=== PATIENT | male | born 1935 | race Caucasian/White ===

== ENCOUNTER → 2017-08-24 12:59 | Outpatient (CLI) | payer MEDICARE, OTHER, SELFPAY ==
--- NOTE | 2017-08-24 13:03 | RAD_ITS ---
STUDY: SWALLOWING STUDY REASON FOR EXAM: Male, 82 years old. Dysphagia. TECHNIQUE: The examination was performed with Speech Pathology in attendance. Under fluoroscopic observation, the patient ingested thin barium, thick barium, barium pudding, and barium coated cracker. FLUOROSCOPY TIME: 1:39 minutes/seconds. 1300 fluoroscopic images were obtained. RADIOLOGIST INVOLVEMENT: Radiologist was present and providing direct supervision. COMPARISON: None. FINDINGS: The following was observed during swallowing of the various mixtures of barium: Thin Barium: There was no evidence of aspiration or laryngeal penetration. Barium Pudding: There was no evidence of aspiration or laryngeal penetration. Barium Coated Cracker: There was no evidence of aspiration or laryngeal penetration. RAD/Swallowing Function w/Video IMPRESSION: Normal tailored barium swallow study. No evidence of increased risk for aspiration. The swallow study findings were discussed with the patient by the speech pathologist at the conclusion of the examination. Please see speech pathology report for more information and recommendations. Electronically Signed: Norberto Perdomo MD at 13:48 EST Tel [phone], Service support ,
--- NOTE | 2017-08-24 13:30 | SP.MBSS_ITS ---
PRIMARY / SECONDARY DIAGNOSIS: dysphagia (R13.10) REFERRING PHYSICIAN: Dr. Alondra Santiago MD CURRENT DIET: regular textures, thin liquids DENTITION: lower plate MENTAL STATUS: WNL RESPIRATORY STATUS: O2 at 3L/min via nasal cannula PREVIOUS MODIFIED BARIUM SWALLOW STUDY: none REASON FOR REFERRAL: Patient is an 82 year old male referred for a modified barium swallow (MBS) study to objectively assess the Patients oropharyngeal swallow function under fluoroscopy following multiple bouts of pneumonia (x5) across a 1 year period. Patient is currently receiving chemo for non-Hodgkin's lymphoma. Patient reports occasional feeling of bolus stasis below the laryngeal notch, further reports occasional reflux with re-presentation of bolus to the oral cavity during intake of solid textures. MEDICAL HISTORY: Non-Hodgkins lymphoma currently receiving chemotherapy, chronic obstructive pulmonary disease, congestive heart failure, reported essential tremor, neuropathy, pulmonary hypertension, hyperlipidemia, atrial fibrillation, prior stent in the RCA STUDY FINDINGS: Patient participated in a Modified Barium Swallow (MBS) study on 08/24/2017. Dr. Perdomo was the radiologist present for this evaluation. This study was recorded in the lateral view and images were sent to PACs for storage. The following consistencies were presented to this patient for analysis of oropharyngeal swallow function: thin liquids, pudding, and a regular textured, Blanca Doone cookie. Results of the MBS are as follows: PENETRATION / ASPIRATION SCALE (JIMENEZ): 1 = does not enter airway 2 = enters airway/above vocal folds/ejected 3 = enters airway/above vocal folds/not ejected 4 = enters airway/contacts vocal folds/ejected 5 = enters airway/contacts vocal folds/not ejected 6 = enters airway/below vocal folds/ejected 7 = enters airway/below vocal folds/not ejected despite effort 8 = enters airway/below vocal folds/no effort PENETRATION / ASPIRATION SCALE (SCORE): Thin liquid - 5 mL tsp.: 1 Thin liquids via cup (single sip): 1 Thin liquids via cup (single sip): 1 Thin liquids via cup (single sip): 1 Thin liquids via cup (sequential swallows): 1 Thin liquids via straw (sequential swallows): 1 Pudding via spoon: 1 Regular textured cookie: 1 Thin liquids via straw (sequential swallows): 1 IMPRESSION: DIAGNOSIS: mild pharyngeal dysphagia (R13.12) ORAL PHASE CHARACTERIZED BY: LABIAL SEAL: no labial escape TONGUE CONTROL DURING BOLUS MANIPULATION: cohesive bolus between tongue to palatal seal BOLUS PREPARATION / MASTICATION: timely and efficient chewing and mashing BOLUS TRANSPORT / LINGUAL MOTION: brisk tongue motion ORAL RESIDUE: intermittent trace residue lining oral structures PHARYNGEAL PHASE CHARACTERIZED BY: INITIATION OF PHARYNGEAL SWALLOW: bolus head at posterior laryngeal surface of epiglottis at first hyoid excursion during large volume thin liquid trials; bolus head in valleculae at first hyoid excursion across remaining trials SOFT PALATE ELEVATION: no bolus between soft palate and pharyngeal wall LARYNGEAL ELEVATION: intermittent partial superior movement of thyroid cartilage/partial approximation of arytenoids cartilage to epiglottic petiole ANTERIOR HYOID EXCURSION: partial anterior movement EPIGLOTTIC MOVEMENT: complete epiglottic inversion LARYNGEAL VESTIBULE CLOSURE AT HEIGHT OF SWALLOW: intermittent incomplete laryngeal vestibule closure with narrow column of air/contrast in laryngeal vestibule PHARYNGEAL STRIPPING WAVE: pharyngeal stripping wave present / complete PHARYNGOESOPHAGEAL SEGMENT OPENING: complete distension and complete duration with no obstruction of flow TONGUE BASE RETRACTION: no contrast between tongue base and posterior pharyngeal wall PHARYNGEAL RESIDUE: intermittent trace residue within or on pharyngeal structures ESOPHAGEAL PHASE CHARACTERIZED BY: ESOPHAGEAL BOLUS CLEARANCE IN THE UPRIGHT POSITION: complete clearance; esophageal coating EFFECTS OF TREATMENT STRATEGIES ATTEMPTED: Reduced bolus size = effective DIET TEXTURE RECOMMENDATIONS: Will recommend a regular textured, thin liquid diet. COMPENSATORY STRATEGIES RECOMMENDED: Reduced bolus volume, seated upright at 90 degrees during PO intake, remain upright for 30-60 minutes post meal (GERD precaution) INTERPRETATION OF RESULTS: Patient presents with mild pharyngeal dysphagia (R13.12) likely associated with a combination of chronic obstructive pulmonary disease and presbyphagia. Pharyngeal phase primarily marked by delayed pharyngeal swallow onset timing resulting in suboptimal bolus location upon swallow onset; and reduced closure of the airway during deglutition attributed to inconsistent hyolaryngeal excursion resulting in inconsistent laryngeal vestibule closure / pressure; all increasing the Patients risk of aspiration, though non aspiration and / or penetration noted throughout trials. Pharyngeal phase presentation not significantly outside expected values in comparison to age matched peers, though the Patient is at higher risk of pulmonary complications secondary to aspiration associated with the diagnosis of chronic obstructive pulmonary disease, would further consider the Patient at higher risk of aspiration / reduction in swallow function during recurrent chemotherapy intervention sessions. All deficits ameliorated with bolus volume adjustments. No aspiration appreciated throughout trials, unable to definitively rule out silent aspiration. RECOMMENDATIONS: Would consider further referral for esophageal workup due to the symptoms described above by the Patient. Patient able to comprehend and express recommended intake precautions detailed above with sufficient detail to suggest high likelihood of compliance. Provided brief overview of signs and symptoms of aspiration, with recommendations for the Patient to further discuss symptoms with PCP. No further skilled speech-language services warranted at this time targeting dysphagia. ADDITIONAL COMMENTS/RECOMMENDATIONS: Results and recommendations were discussed with the Patient immediately following MBS completion, with the Patient verbalizing understanding and agreement with all recommendations and education provided. IMAGE COUNT: 1300 G-CODES: SWALLOWING [id number] Current Status: CI SWALLOWING G8997 Goal Status: CI SWALLOWING G8998 Discharge Status: CI
== END ==
PROVIDERS: Family Provider Family Medicine; PCP Family Medicine
DX: R13.10 Dysphagia, unspecified (principal)
CPT/HCPCS: 74230; 92611; G8996; G8997; G8998

== ENCOUNTER 2018-03-22 06:16 | Day surgery (SDC) | payer MEDICARE, OTHER, SELFPAY ==
--- NOTE | 2018-03-22 | GASB_PTH ---
PATIENT: BARRY LOVE LOC: EN U#:[id number] AGE/SX: 83/M ROOM: RE03/22/[address]: Dr. Brenda Berg MD : 1935 BED: DIS: 03/22/2018 SPEC #: [id number] RECD: 03/22/18 14:19 STATUS: KANU RE #: [id number] HAI: 03/22/18 00:[address]: Brenda Berg DEPT: SURGICAL PATHOLOGY RECD BY: Dinesh Callejas ENTERED: 03/22/18 14:20 SP TYPE: Gastric Bx OTHR DR: Dr. Jethro Dennis DO Tissues: A - Gastric mucous membrane B - Esophageal mucous membrane C - Esophageal mucous membrane Procedures: Special Stain Group I Surgery Specimen Level IV GMS Stain (control) HEADER OPERATION: EGD ([facility] [place] PRE-OP DIAGNOSIS: Esophageal pain, dysphagia TISSUE SUBMITTED: A ? Biopsy antrum of stomach, B ? Biopsy lower esophagus, C ? Biopsy mid esophagus MICROSCOPIC DIAGNOSIS A. Antrum of stomach, biopsy: Mild gastritis. B. Lower esophagus, biopsy: Fragments of squamous epithelium with acute and chronic inflammation. Focal superficial bacterial colonization. Special stain for fungi is positive for organisms (yeast and pseudohyphae) consistent with alejandra species; matched control is appropriate. C. Mid esophagus, biopsy: Fragments of squamous epithelium with ulceration and associated marked acute inflammation. Extensive superficial bacterial colonization. Special stain for fungi is positive for numerous organisms (yeast and pseudohyphae) consistent with alejandra species; matched control is appropriate. SJ:arnav 03/25/18 COMMENT A. The results of immunohistochemistry for Helicobacter pylori will be reported separately ([id number]). MICROSCOPIC DESCRIPTION Slides are reviewed. A. The specimen shows fragments of gastric mucosa with chronic inflammatory cell infiltrates in the lamina propria consisting of lymphocytes and plasma cells, consistent with mild chronic gastritis. GROSS DESCRIPTION A - Received in fixative is one container labeled with the patient's name and designated biopsy antrum of stomach. The specimen consists of two irregular fragments of light lucero soft tissue that in aggregate measure 0.8 x 0.2 x 0.1 cm. The specimen is totally submitted in one cassette. B - Received in fixative is one container labeled with the patient's name and designated biopsy of lower esophagus. The specimen consists of multiple irregular fragments of light lucero soft tissue that in aggregate measure 1 x 0.3 x 0.1 cm. The specimen is totally submitted in one cassette. C - Received in fixative is one container labeled with the patient's name and designated biopsy of mid esophagus. The specimen consists of multiple irregular fragments of light lucero soft tissue that in aggregate measure 1.5 x 0.5 x 0.1 cm. The specimen is totally submitted in one cassette. / SJ:rg 03/22/18 TC: 2 CPT: 72811 x3, 91826 x2
--- NOTE | 2018-03-22 | IMM_PTH ---
PATIENT: BARRY LOVE LOC: EN U#:[id number] AGE/SX: 83/M ROOM: RE03/22/[address]: Dr. Brenda Berg MD : 1935 BED: DIS: 03/22/2018 SPEC #: [id number] RECD: 03/25/18 10:07 STATUS: KANU REQ #: [id number] HAI: 03/22/18 00:[address]: Brenda Berg DEPT: IMMUNOHISTOCHEMISTRY RECD BY: Agustina Ramírez ENTERED: 03/25/18 10:08 SP TYPE: IMMUNO OTHR DR: Dr. Jethro Dennis, Tissues: A - Stomach, NOS Procedures: H Pylori (initial) PHYSICIAN & INSTITUTION [place] [id number] SPECIMEN INFORMATION: Tissue Source: A ? Biopsy of antrum of stomach Clinical Info: Esophageal pain, dysphagia Specimen Number: [id number] CPT code: 54516 METHODOLOGY: Deparaffinized sections of prefer/formalin-fixed tissue or PAP/DQ stained slides are incubated with monoclonal/polyclonal antibodies/oligonucleotide probes. Localization is made via biotin free immunoperoxidase method. Appropriate controls are performed and reacted as expected. Results on target cell population are indicated in the following table: RESULTS: ANTIBODY / CLONE RESULT Block A H Pylori (polyclonal) negative These tests were developed and their performance characteristics determined by [facility]. They may not have been cleared or approved by the U.S. Food and Drug Administration. The FDA has determined that such clearance or approval is not necessary. INTERPRETATION: A. Antrum, biopsy: Negative for Helicobacter pylori organisms. SJ:arnav 03/25/18
[2018-03-22 06:47] VITALS: BP 114/50; PULSE 63; RESP 22; TEMP 36.4; O2SAT 100; BMI 39.1
--- NOTE | 2018-03-22 07:57 | PCM.IMDPSTOP ---
Immediate Post-Op Note Date of Procedure: 03/22/18 Primary Surgeon/Physician: Brenda Berg shovel loader operator: NOT,DEFINED Pre-Operative Diagnosis: dysphagia, esophageal pain Post-Operative Diagnosis: esophagitis, hiatal hernia, pathology pending Surgery/Procedure Performed:: esophagogastroduodenoscopy with mucosal biopsies Description of Surgical Findings:: moderate sized hiatal hernia noted with sliding component, esophagitis of mid to lower - biopsies taken Estimated Blood Loss: minimal Specimen's removed: mucosal biopsies of antrum of stomach, mucosal biopsies of lower and mid esophagus Type of Anesthesia:: MAC ASA Class: ASA3 Severe Disease
--- NOTE | 2018-03-22 07:58 | PCM.OPRPT ---
Report of Operation Date of Procedure: 03/22/18 Pre-Operative Diagnosis: dysphagia, esophageal pain Post-Operative Diagnosis: esophagitis, hiatal hernia, pathology pending Surgery/Procedure Performed:: esophagogastroduodenoscopy with mucosal biopsies Description of Surgical Findings:: moderate sized hiatal hernia noted with sliding component, esophagitis of mid to lower - biopsies taken landing worker: NOT,DEFINED Type of Anesthesia:: MAC Anesthesiologist: Law Tinoco Specimen's removed: mucosal biopsies of antrum of stomach, mucosal biopsies of lower and mid esophagus Estimated Blood Loss (mL): minimal Fluids Replaced: see anesthesia note Description of Procedure: After informed consent was given, the patient was brought to the endoscopy suite. Appropriate time out protocol was followed. Appropriate cardiac, blood pressure, and pulse oximetry monitoring was placed. After stable vital signs were noted, the patient was given intravenous conscious sedation. The posterior pharynx was sprayed with lidocaine spray times two and a bite block was placed. The patient was then placed in the left lateral decubitis position. The upper endoscope was lubricated and inserted into the patients mouth and then carefully placed into the patients throat. The patient was asked to swallow and the endoscope was then easily advanced into the patients esophagus. The endoscope was further advanced down into the patients stomach, then past the pylorus, then past the duodenal bulb and then to the second portion of the duodenum. There were no lesions noted in the duodenum. The endoscope was then retracted back into the stomach. There was spotty amounts of flecks of blood in the stomach. No ulcers were noted. Mucsoal biopsies with cold grasper forceps were taken of the antrum of the stomach. A retroflex view of the stomach revealed no evidence of any masses. Patient was noted to have a moderate sized hiatal hernia. No ulcers, no strictures, no masses were noted. The endoscope was retracted into the esophagus. Patient was noted to have a sliding hiatal hernia component. The mid to lower esophagus appeared with erythematous mucosa - no ulcers or masses were noted. Mucosal biopsies wre taken with cold grasper forceps. The remainder of the upper esophagus was normal. The upper endoscope was removed intact. Patient tolerated procedure well. - Complications none noted
[2018-03-22 08:00] VITALS: BP 104/49; BP 114/50; PULSE 74; RESP 18; TEMP 36.6; O2SAT 100
[2018-03-22 08:05] VITALS: BP 114/50; BP 118/56; PULSE 75; RESP 18; O2SAT 100
[2018-03-22 08:10] VITALS: BP 114/50; BP 125/56; PULSE 77; RESP 18; O2SAT 100
[2018-03-22 08:15] VITALS: BP 114/50; BP 121/73; RESP 18; TEMP 36.4; O2SAT 100
[2018-03-22 08:29] VITALS: BP 114/50
--- NOTE | 2018-03-31 15:39 | PCM.HP.BLA ---
History and Physical Date of Admission: 03/22/18 Hector Loyola 1935 ? ? REFERRING PHYSICIAN: Raoul Altamirano MD ? CHIEF COMPLAINT: New Patient and Dysphagia ? HPI: The patient is a 82 year old male presents with dysphagia. 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 Recurrence of disease - treated with rituximab 2016 - no response. 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 Had add'l chemotherapy completed 2016 with partial response. Had rituximab maintenance (end October 2017) with progression of disease XRT to mediastinum in December 2017 Last had EGD Feb 2015 - gastritis, no esophagitis noted ? Complaint of dysphagia since radiation treatments. States that he can only swallow small bites. Seems to be stuck in the pharyngeal area, but now has some getting stuck in mid sternum, feels like food gets stuck and then comes back up and then he swallows it down. He denies coughing up blood, denies hematemesis. Also complains of pain when food going down - burning. Has had multiple bouts of pneumonia in the past 2 years. Has noted persistent rash - pruritic and painful for the past 9 weeks - evaluated by [facility] and [facility] ? Barium swallow study at [facility] Aug 2017 - normal swallowing function of esophagus, however, slight pharyngeal ? ? PAST MEDICAL HISTORY Arrhythmia ? Arthritis ? ? severe - both knees Atrial fibrillation (HCC) ? 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 follicular center cell lymphoma Cataract ? COPD (chronic obstructive pulmonary disease) (HCC) ? ? home oxygen at night Coronary artery disease 12 years ago ? s/p stent HTN (hypertension) ? Hypercholesterolemia ? Kidney stones ? Pancreatitis 1979' ? ETOH related Peripheral neuropathic pain ? ? 2016, lower legs Rectal bleeding 09/16/2014 Sleep apnea ? Snoring ? ? PAST SURGICAL HISTORY COLONOSCOP W/ OR W/O BRSH SPEC ? 09/16/2014 ? Repeat 2018 HEART CATHETERIZATION ? 2002 ? stent placement HEART SURGERY HX ? ? KIDNEY SURGERY HX ? ? PAST SURGICAL HISTORY OF ? approx. 2009 ? Left and right knee replacements PAST SURGICAL HISTORY OF ? 1998 ? Cardiac Stent Duet to RCA PAST SURGICAL HISTORY OF ? ? ? kidney stones blasted ? ? Current Outpatient Prescriptions: predniSONE (DELTASONE) 20 mg tablet Take 3 pills daily x 1 week, 2 pills daily x 1 week, then 1 pill daily x 1 week doxycycline monohydrate 100 mg tablet Take 100 mg by mouth twice daily. niacin (NIACIN) 500 mg tablet Take 500 mg by mouth twice daily. furosemide (LASIX) 40 mg tablet Take 1 tablet by mouth once daily. triamcinolone acetonide (KENALOG) 0.1 % cream twice daily. hydrOXYzine HCl (ATARAX) 25 mg tablet Take 25 mg by mouth every 6 hours as needed for Itching/Rash. HYDROcodone-acetaminophen (NORCO) 5-325 mg per tablet Take 1 tablet by mouth every 6 hours as needed. doxazosin (CARDURA) 8 mg tablet Take 8 mg by mouth daily at bedtime. Pseudoephedrine-guaiFENesin (MUCINEX D MAXIMUM STRENGTH) 120-1,200 mg Tb12 Take 1 tablet by mouth every 12 hours as needed. atorvastatin (LIPITOR) 20 mg tablet Take 1 tablet by mouth once daily. losartan (COZAAR) 50 mg tablet Take 50 mg by mouth once daily. sotalol (BETAPACE) 80 mg tablet Take 1 tablet by mouth twice daily. tiotropium bromide (SPIRIVA RESPIMAT) 1.25 mcg/actuation mist Inhale 2 Puffs as instructed once daily. ipratropium-albuterol (DUONEB) 0.5 mg-3 mg(2.5 mg base)/3 mL nebu Inhale 3 mL as instructed every 4 hours as needed. apixaban (ELIQUIS) 5 mg tab tab(s) Take 1 tablet by mouth twice daily. propranolol ER (INDERAL LA) 160 mg Cs24 Take 160 mg by mouth once daily. OXYGEN, HOME THERAPY, Inhale 3 L/min as instructed continuous. budesonide-formoterol (SYMBICORT) 160-4.5 mcg/actuation inhaler Inhale 2 Puffs as instructed twice daily. albuterol HFA (PROVENTIL HFA) 90 mcg/actuation inhaler Inhale 2 Puffs as instructed as needed. hydrocortisone valerate (WESTCORT) 0.2 % cream Apply to affected area as needed. triamcinolone (KENALOG) 0.025 % ointment Apply 1 application to affected area twice daily as needed. cyanocobalamin (VITAMIN B-12) 1,000 mcg tab Take 1,000 mcg by mouth once daily. Pyridoxine HCl (VITAMIN B-6) 250 mg tablet Take 250 mg by mouth once daily. ? ? ALLERGIES: Iodine [Contrast Dye] ? 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 Social History Main Topics Smoking status: Former Smoker Packs/day: 1.50 Years: 20.00 Types: Cigarettes Start date: 03/14/1949 Quit date: 08/16/1983 Smokeless tobacco: Former User Types: Chew Quit date: 02/03/2010 Comment: Father smoked in childhood home. Alcohol use: No Comment: Quit heavy use in 1983 Drug use: No ? FAMILY HISTORY Asthma Sister ? Cancer Brother ? ? Throat in his late 50s None Sister ? None Brother ? None Sister ? None Sister ? ? ? REVIEW OF SYSTEMS Constitutional: Denies episodes of night sweats., has had weight loss due to can't eat, increased tiredness because can't eat - lack of energy? Neuro: Denies GUILLEN, vertigo and imbalance. No symptoms of neuropathy. ? HEENT: No recent change in voice, vision or hearing. ? Resp: No shortness of breath at rest. ? CVS: Denies exertional chest pain, PND, orthopnea and LE edema. ? GI: has difficulty swallowing, see HPI. ? : has kidney stones, No dysuria or gross hematuria. . ? Endo: No hot flashes. ? Musculoskeletal: Chronic b/l knee pain. ? Derm: has skin rash. ? Heme: easy bruising, denies spontaneous/prolonged bleeding. ? Psych: frustated with medical problems, seemingly depressed that nothing is improving ? PHYSICAL EXAMINATION: General: The patient is 82 year old male, well nourished, well hydrated in no acute distress. The patient is oriented to time, place, and person. VITALS: Blood pressure 102/68, pulse 72, height 170.2 cm (5' 7), weight 113.4 kg (250 lb). Body mass index is 39.16 kg/m?. Head Normocephalic. EOM intact with sclera clear and no icterus noted. Mouth with mucus membranes moist. Neck - supple with no jugular venous distention noted. Trachea is midline. No carotid bruits noted.. Lungs clear to auscultation. Normal breath sounds No rales/rhonchi/wheezing noted. No labored breathing noted, such as retractions. Heart normal S1 and S2 auscultated. No rubs/clicks/murmurs noted. Regular rate. Abdomen soft and benign. Normal bowel sounds. Difficult to determine if any masses or organomegaly due to body habitus. Extremities no calf tenderness noted. Skin macular-papular erythematous rash. Neurological non focal. Psych calm and appropriate ? IMPRESSION: dysphagia, esophageal pain ? PLAN: I have discussed the above with the patient. I have offered evaluation with EGD, possible biopsies I have explained the procedure to the patient. I have counseled the patient as to the risks of the procedure, including but not limited to: infection, bleeding, injury to any blood vessels/nerves, injury to any intraabdominal organs such as liver/spleen, perforation of the GI tract, aspiration, complications of anesthesia, etc. the patient understands. The patient wishes to proceed. I have answered all questions to the patients satisfaction and the patient has no further questions. ? Diagnoses: (R13.10) Dysphagia, unspecified type (primary encounter diagnosis) (K22.8) Esophageal pain
== END 2018-03-22 08:42 | disposition home or self-care (01) ==
LOC: EN 06:16 → AC 06:20
PROVIDERS: Family Provider Family Medicine; PCP Family Medicine; Visit Provider Surgery
PROC: 0DJ08ZZ Inspection of Upper Intestinal Tract, Via Natural or Artificial Opening Endoscopic (ICD-10-PCS; CPT 43235; principal; 2018-03-22 07:25)
DX: K29.70 Gastritis, unspecified, without bleeding (principal); K44.9 Diaphragmatic hernia without obstruction or gangrene; B37.81 Candidal esophagitis; L29.9 Pruritus, unspecified; M19.90 Unspecified osteoarthritis, unspecified site; J44.9 Chronic obstructive pulmonary disease, unspecified; I11.0 Hypertensive heart disease with heart failure; I50.9 Heart failure, unspecified; I48.91 Unspecified atrial fibrillation; E78.00 Pure hypercholesterolemia, unspecified; I25.10 Atherosclerotic heart disease of native coronary artery without angina pectoris; G47.30 Sleep apnea, unspecified; F32.9 Major depressive disorder, single episode, unspecified; Z92.21 Personal history of antineoplastic chemotherapy; Z85.72 Personal history of non-Hodgkin lymphomas; Z86.2 Personal history of diseases of the blood and blood-forming organs and certain disorders involving the immune mechanism; Z87.442 Personal history of urinary calculi; Z87.19 Personal history of other diseases of the digestive system; Z87.01 Personal history of pneumonia (recurrent); Z95.5 Presence of coronary angioplasty implant and graft; Z96.653 Presence of artificial knee joint, bilateral; Z79.01 Long term (current) use of anticoagulants; Z79.899 Other long term (current) drug therapy; Z87.891 Personal history of nicotine dependence
CPT/HCPCS: 43239; 88305; 88312; 88342; J7120

== ENCOUNTER 2018-09-27 15:05 | Observation (INO) | payer MEDICARE, OTHER, SELFPAY ==
[2018-09-27] VITALS (11 sets, daily range): BP systolic 102–144; BP diastolic 45–64; PULSE 54–112; RESP 16–54; TEMP 36.6–36.7; O2SAT 81–97; BMI 34.4; BMI 34.0
--- NOTE | 2018-09-27 15:31 | EKG12_ITS ---
Test Reason : IRREGULAR HR Blood Pressure : / mmHG Vent. Rate : 061 BPM Atrial Rate : 061 BPM P-R Int : 000 ms QRS Dur : 086 ms QT Int : 414 ms P-R-T Axes : 000 007 050 degrees QTc Int : 416 ms Atrial fibrillation Low voltage QRS Abnormal ECG Confirmed by ROZ MENDEZ ([id number]), scientific publications editor MARIA EUGENIA ARORA ([id number]) on 09/30/2018 4:38:12 PM Referred By: ELENO Confirmed By:ROZ MENDEZ
--- NOTE | 2018-09-27 15:33 | ED.VISSUMM ---
- ER Visit Summary Date of Service: 09/27/18 Chief Complaint: Low heart rate, low blood pressure, and weakness History of Present Illness: The patient is a 83 M who presents with low heart rate, low blood pressure, and generalized weakness that began yesterday. Patient states that he has been feeling lightheaded. Patient admits to generalized weakness. Patient states that he has a frontal headache that feels like a pressure. Patient admits to some nausea but denies any vomiting. Patient admits to some shortness of breath and cough. Patient denies any sputum production. Patient denies any fevers or chills. Physical Examination: Vital signs are stable. Patient had a documented pulse ox of 81% on his 4 L nasal cannula however, while he was in the room on wall oxygen his pulse ox was 96% on 3 L. Oral mucosa is pink and moist. Neck is supple. Trachea is midline. There is no JVD noted. Heart was regular rate and rhythm. Lungs are clear and equal bilaterally. Abdomen is soft. Bowel sounds are normal. There is no tenderness. Cranial nerves II through XII are intact. There are no focal motor or sensory deficits noted. The remaining physical exam is within normal limits. Test Results: EKG showed sinus bradycardia with frequent PACs. There are no acute ST or T wave changes noted. CBC shows a mild anemia with hemoglobin of 11.0 and hematocrit of 33.9. Platelets were 119. Basic metabolic profile showed an elevated BUN and creatinine of 35 and 1.97. These are increased compared to previous results. Troponin was normal. BNP was 187.3. Emergency Department Course and Treatment: Patient was given a 250 cc bolus of normal saline. Patient felt weak. Case was discussed with the hospitalist. Patient will be admitted. Disposition: Admit to hospital Impression: 1. Acute kidney injury 2. General weakness This note was generated with [employer] dictation software. It may contain incorrect words, spelling, and punctuation that were not noted in review of the chart prior to signing ED Disposition - Plan for ED Patient: Referrals: Jethro Dennis DO [Primary Care Provider] -
--- NOTE | 2018-09-27 15:57 | RAD_ITS ---
STUDY: X-RAY CHEST REASON FOR EXAM: Male, 83 years old. SOB, hypotension, irregular heart rate. TECHNIQUE: PA and lateral chest. COMPARISON: 06/23/2016. FINDINGS: There is mild atelectasis in the lung bases. There is no demonstrated pleural abnormality. Normal size heart. Normal mediastinum and andrea. Normal visualized pulmonary arteries. There is atherosclerotic calcification of the aortic arch. Normal visualized thoracic spine. Normal visualized ribs, clavicles, and shoulders. There is no demonstrated abnormality of the visualized soft tissue structures of the upper abdomen. RAD/Chest PA and Lateral IMPRESSION: Bibasilar atelectasis. Otherwise, no acute process. Electronically Signed: Leanne Wood MD at 16:30 EDT Tel , Service support ,
[2018-09-27 16:01] LABS: Absolute Lymphocyte Count 0.96 X10^3/ul (0.83-4.51); Absolute Neutrophil Count 4.3 X10^3/uL (2.0-7.7); Basophil# 0.01 X10^3/uL; Basophil% 0.2 % (0-1); Eosinophil# 0.31 X10^3/uL; Eosinophils% 4.8 % (0-5); Hematocrit 33.9 % (40-54); Lymphocyte # 0.96 X10^3/ul (4.0); Mean Corp Hgb Conc 32.4 g/gl (32-36); Mean Corpuscular Hgb 33.4 pg (27.0-32.0); Mean Platelet Vol. 9.4 fl (6.2-12.0); Monocyte# 0.83 X10^3/uL; Neutrophil # 4.28 X10^3/uL (2.7-7.7); Neutrophil % 66.8 % (47-70); POSITIVE COUNT NO; POSITIVE DIFFERENTIAL NO; POSITIVE MORPHOLOGY NO; Platelet Count 119 K/mm3 (150-450); RBC Distribution Width CV 12.9 % (11.6-14.6); RBC Distribution Width SD 48.4 fl (35.1-43.9); Red Blood Count 3.29 M/mm3 (4.6-6.2); White Blood Count 6.4 K/mm3 (4.4-11.0)
[2018-09-27 16:20] LABS: ALB/GLOB Ratio 1.1 RATIO (0.9-2.4); AST(SGOT) 19 U/L (15-37); Alanine Aminotransfer ALT/SGPT 17 U/L (16-61); Albumin, Serum 3.3 g/dL (3.2-5.0); Alkaline Phosphatase 79 U/L (45-117); Anion Gap 7 (5-15); BUN 35 mg/dL (7-18); BUN/Creat Ratio 17.8 RATIO (10-20); Calcium,Total 9.2 mg/dL (8.5-10.1); Chloride 100 mmol/L (98-107); Creatinine, Serum 1.97 mg/dL (0.70-1.30); EST Glomerular Filtration Rate 35 mL/min (>60); Est Glom Filt Rate - Afr Amer 42 mL/min (>60); Globulin 2.9 g/dL (2.2-4.2); Glucose 138 mg/dL (74-106); Potassium 3.9 mmol/L (3.5-5.1); Protein, Total 6.2 g/dL (6.4-8.2); Sodium Level 139 mmol/L (136-145)
[2018-09-27 16:27] LABS: BNP,B-Type NATRIURETIC PEPTIDE 187.3 pg/mL (0-100)
--- NOTE | 2018-09-27 16:55 | CM.ED ---
Addendum entered by Jodee Armenta 09/27/18 18:01: PATIENT TO BE ADMITTED TO PCU. Original Note: SOCIAL WORK ASSESSMENT Referral Date: 09/27/18 Date of Assessment: 09/27/18 Informant: TRIAGE NURSEONUR Reason for Consult: D/C PLANNING NEEDS, EMOTIONAL SUPPORT- 4 MONTHS AGO Information obtained from: PATIENT Living Arrangements: PATIENT LIVES HOME ALONE IN A 1 STORY HOME WITH 2-3 STEPS TO ENTER. Employment/Financial: RETIRED, PATIENT DENIES ANY FINANCIAL CONCERNS. Supports: PATIENT REPORTS GOOD SUPPORT FROM FAMILY AND FRIENDS. [facility] AND [facility] 10 HOURS/WEEK (UNABLE TO RECALL NAME OF PROVIDER) AND MEALS ON WHEELS. Social/Family Stressors: PATIENT HASN'T BEEN FEELING WELL AND WAS TOLD TO COME TO THE ED YESTERDAY BY PRIMARY CARE DOCTOR-DR. HERNÁNDEZ. PATIENT WOKE UP THIS MORNING AND KNEW HE NEEDED TO BE SEEN. PATIENT HAS BEEN FEELING MORE WEAK. 4 MONTHS AGO. Mental Health History: PATIENT ADMITS TO HX OF DEPRESSION SINCE 'S PASSING. Substance Abuse History: PATIENT ADMITS TO HX OF ALCOHOL ABUSE. Substance(s) of choice: ALCOHOL Last use: PATIENT REPORTS QUIT DRINKING AND SMOKING IN 1982. Interventions: NET FISHER ASSESSMENT EDUCATION ON HOME HEALTH AND UYEN/SNF EMOTIONAL SUPPORT Assessment: PATIENT IS A 83 Y/O MALE WHO PRESENTS TO THE ED WITH HYPOTENSION AND IRREGULAR HEART RATE. PATIENT STATES LIVES HOME ALONE IN A 1 STORY HOME WITH 2-3 STEPS TO ENTER. PATIENT REPORTS DME IN THE HOME CONSISTS OF O2, WALKER, SHOWER CHAIR. PATIENT HAS MEALS ON WHEELS AND AIDE SERVICES TH[facility]OUGH [facility] 10 HOURS/WEEK THAT ASSIST WITH HOMEMAKING, GROCERY SHOPPING, AND BATHING. PATIENT ADMITS TO HX OF DEPRESSION SINCE 'S PASSING. PATIENT ADMITS TO HX OF ALCOHOL ABUSE AND STATES HAS ABSTAINED FROM ALCOHOL SINCE 1982. PATIENT HAS A DAUGHTER, JOSE A HURTADO WHO RESIDES IN [place] WHO WILL BE IN TOWN THIS EVENING. PATIENT UNSURE OF D/C NEEDS AT THIS TIME. ALL OPTIONS DISCUSSED. AWAITING LAB RESULTS AND WORKUP TO DETERMINE IF PATIENT WILL REQUIRE ADMISSION. NET FISHER TO CONTINUE TO FOLLOW. PLAN: TBD
--- NOTE | 2018-09-27 17:54 | NURSING ---
DR DIGNA ROBERTSON
--- NOTE | 2018-09-27 17:58 | NURSING ---
PCU NEAR SYNCOPE DIGNA
--- NOTE | 2018-09-27 18:02 | ED.DCSUM_ITS ---
- ER Visit Summary Date of Service: 09/27/18 Chief Complaint: [] History of Present Illness: The patient is a 83 M [] Physical Examination: [] Test Results: [] Emergency Department Course and Treatment: [] Treatment Plan: [] Disposition: [] Impression: [] This note was generated with [employer] dictation software. It may contain incorrect words, spelling, and punctuation that were not noted in review of the chart prior to signing ED Disposition - Plan for ED Patient: Disposition: Acute Care Hospital [facility] Diagnosis: Acute kidney injury, Generalized weakness Referrals: Jethro Dennis DO [Primary Care Provider] -
--- NOTE | 2018-09-27 19:40 | PCM.HP.STD ---
Problem List (1) Near syncope Status: Acute (2) Pityriasis rubra pilaris Status: Chronic (3) Chronic a-fib Status: Chronic (4) Follicular lymphoma Status: Chronic (5) NHL (non-Hodgkin's lymphoma) Status: Chronic (6) Chronic diastolic heart failure Status: Chronic (7) COPD Status: Chronic (8) Restless leg disorder Status: Chronic (9) Chronic normocytic normochromic anemia Status: Chronic (10) Acute kidney injury Status: Acute (11) Generalized weakness Status: Acute History of Present Illness Date of Admission: 09/27/18 Chief Complaint: Generalized weakness with low blood pressure and heart rate. The patient is a 83 year old M with multiple comorbidities as listed above came to ER with feeling dizziness, lightheadedness on standing or walking. Patient was found to have low blood pressure, low heart rate in PCP office yesterday. Heart rate was in 40s and blood pressure systolic in 80s as per patient. No documentation available to corroborate. In ED, optomechanical technician shows A. fib, heart rate 63. Blood pressure 102/50 improved to 144/64. EKG shows A. fib with with no change from 2016. Chest x-ray shows bibasilar atelectasis otherwise no acute process. Patient also has history of BPH and complaint of weak stream of urine and burning pain sometimes for last 1 week. In ED, significant abnormal blood work was BUN/creatinine 35/1.97 up from 26/.02 in June 2016 Patient has chronic rash all over the body, erythematous somewhere greenish to blackish pigmentation on the back due to pityriasis rubra pilaris Past Medical History Past Medical History (Chronic Problems): Chronic Problems Pityriasis rubra pilaris (Chronic) Chronic a-fib (Chronic) Follicular lymphoma (Chronic) NHL (non-Hodgkin's lymphoma) (Chronic) Chronic diastolic heart failure (Chronic) COPD (Chronic) Restless leg disorder (Chronic) Chronic normocytic normochromic anemia (Chronic) Allergies Iodinated Contrast- Oral and IV Dye [Iodinated Contrast Media - Oral and] Allergy (Verified 09/27/18 15:11) Hives Home Medications: Ambulatory Orders Medication Instructions Recorded Apixaban [Eliquis] 5 mg PO BID 06/23/16 Atorvastatin Calcium [Lipitor] 20 mg PO QHS 06/23/16 Budesonide/Formoterol 160/4.5 1 puff INHALATION BID 06/23/16 [Symbicort 160/4.5 Mcg Inhaler (SP)] Doxazosin Mesylate 8 mg PO QHS 06/23/16 Propranolol HCl [Propranolol HCl 80 mg PO QHS 06/23/16 ER] Sotalol HCl [Betapace AF (Beta 40 mg PO BID 06/23/16 [place])] Losartan Potassium [Cozaar] 50 mg PO DAILY 03/19/18 Acitretin 25 mg PO DAILY 09/27/18 Albuterol Sulfate [Proventil Hfa] 6.7 gm IH Q4H PRN PRN 09/27/18 Clotrimazole 10 mg PO 5X/DAY 09/27/18 Furosemide [Lasix] 80 mg PO DAILY 09/27/18 Ondansetron [Zofran] 8 mg PO Q8H PRN PRN 09/27/18 Tiotropium Hustler [Spiriva 2 puff INHALATION DAILY 09/27/18 Respimat] Surgical History: total knee arthroplasty, - - Coronary stent placement Psychiatric History: No pertinent psych hx Smoking Status: Former smoker - *Family History Maternal History Items: No pertinent history Paternal History Items: Renal Disease Review of Systems Constitutional: Reports: Weakness. Denies: Chills, Fever, Weight Change Eyes: Denies: Blurred vision HEENT: Denies: Head Aches, Sinus Congestion, Sinus Drainage Cardiovascular: Reports: Edema, Light Headedness. Denies: Chest Pain, Chest Pressure, Chest Tightness, Palpitations Respiratory: Reports: Shortness of breath upon exertion. Denies: Cough, Shortness of Breath, Shortness of breath at rest, Sputum production Gastrointestinal: Denies: Abdominal Pain, Nausea, Vomiting Genitourinary: Reports: - - Weak stream. Denies: Dysuria Musculoskeletal: Reports: Back Pain, Joint Pain. Denies: Joint Tenderness Skin: Reports: Rash. Denies: Wounds Neurological: Reports: Balance problems. Denies: Focal weakness, Numbness, Tingling Psychiatric: Denies: Anxiety, Depression, Homicidal Ideations, Suicidal Ideations Hematologic/ Lymphatic: Reports: Easy Bruising. Denies: Easy Bleeding VTE Information - Inpt Only VTE Present on Admission: No VTE Mechan Device Prophylaxis: None VTE Pharm Prophylaxis ordered?: Yes Patient Problems: Active and Suspected Problems Acute kidney injury (Acute) Generalized weakness (Acute) Near syncope (Acute) - Physical Exam General: Alert, Oriented x3, Cooperative HEENT: Atraumatic, PERRLA, EOMI, Normocephalic Oral: Dry Mucosa Neck: Supple, No JVD, Negative Carotid Bruits Lungs: Clear to auscultation, No rhonchi, No wheeze, No rales, Diminished - Air entry is diminished diffuse Cardiovascular: Normal S1, Normal S2, No murmurs, Irregular Rate Abdomen: Bowel Sounds Present, Soft, Non Tender, Non-Distended Extremities: Capillary Refill Less than 3 Seconds, Edema Skin: Rash Present - Chronic erythematous rash present in the extremities and trunk except back where gracious/blackish pigmentation secondary to pityriasis rubra pilaris Musculoskeletal: No Tenderness to Palpation of Joints or Extremities, Arthritic Changes, Muscle Wasting Neurological: Cranial nerves II-XII grossly intact, Neuro grossly intact Psych/Mental Status: Normal Affect, Appropriate Vital Signs Temp Pulse Resp BP Pulse Ox 97.8 F 54 L 19 H 144/64 H 97 09/27/18 15:05 09/27/18 19:00 09/27/18 19:00 09/27/18 19:00 09/27/18 19:00 Oxygen Flow Rate (L/min) 4 Oxygen Delivery Method Room Air Weight: 220 lb Body Mass Index (BMI) 34.4 Laboratory Tests Past 24 Hrs 09/27/18 09/27/18 09/27/18 15:50 15:50 15:50 WBC 6.4 RBC 3.29 L Hgb 11.0 L Hct 33.9 L MCV 103.0 H MCH 33.4 H MCHC 32.4 RDW 12.9 RDW Differential 48.4 H Plt Count 119 L MPV 9.4 Immature Gran % (Auto) 0.200 Neut % (Auto) 66.8 Lymph % (Auto) 15.0 L [place] % (Auto) 13.0 H Eos % (Auto) 4.8 Baso % (Auto) 0.2 Absolute Neuts (auto) 4.3 Absolute Lymphs (auto) 0.96 Total Counted Not Reportable Sodium 139 Potassium 3.9 Chloride 100 Carbon Dioxide 32.0 Anion Gap 7 BUN 35 H Creatinine 1.97 H Estim Creat Clear Calc 27.50 Est GFR (MDRD) Af Amer 42 L Est GFR (MDRD) Non-Af 35 L BUN/Creatinine Ratio 17.8 Glucose 138 H Calcium 9.2 Total Bilirubin 0.40 AST 19 ALT 17 Alkaline Phosphatase 79 Troponin I < 0.015 B-Natriuretic Peptide 187.3 H Total Protein 6.2 L Albumin 3.3 Globulin 2.9 Albumin/Globulin Ratio 1.1 Assessment/Plan All Active Problems Acute kidney injury (Acute) Generalized weakness (Acute) Near syncope (Acute) The patient is a 83 year old M with multiple comorbidities as listed above came to ER with feeling dizziness, lightheadedness on standing or walking. Patient was found to have low blood pressure, low heart rate in PCP office yesterday. Heart rate was in 40s and blood pressure systolic in 80s as per patient. No documentation available to corroborate. In ED, optomechanical technician shows A. fib, heart rate 63. Blood pressure 102/50 improved to 144/64. EKG shows A. fib with with no change from 2016. Chest x-ray shows bibasilar atelectasis otherwise no acute process. Patient also has history of BPH and complaint of weak stream of urine and burning pain sometimes for last 1 week. In ED, significant abnormal blood work was BUN/creatinine 35/1.97 up from 10/08.02 in June 2016 Patient has chronic rash all over the body, erythematous somewhere greenish to blackish pigmentation on the back due to pityriasis rubra pilaris 1. Near syncope, with hypotension, probably secondary to diuretic or dehydration: Patient is being admitted on PCU. Cycle cardiac enzymes. Orthostatic blood pressure. IV fluid normal saline at 100 mL/h. Monitor intake and output. Patient looks mildly dehydrated. 2. Chronic diastolic heart failure and chronic A. fib: Patient had echo in August 2015 reported as EF 65% with normal right and left atrium. Normal RV size and systolic function. Mild MR, trivial TR, RVSP 35 Hg. Normal aortic valve. We will repeat the echo. On Eliquis 5 mg twice daily. 3. NHL with follicular lymphoma type: Patient follows Dr. Wagner. No acute issues 4. COPD, ex-smoker: DuoNeb as needed. 5. pityriasis rubra pilaris Chronic erythematous rash present in the extremities and trunk except back where gracious/blackish pigmentation. Patient follows field property loss specialist. Patient probably on hydrocortisone cream. 6. Other comorbidities include chronic normocytic normochromic anemia, restless leg disease, DVT prophylaxis: On Eliquis 5 mg twice daily. Clinical Impression(s) from Imaging Studies Chest X-Ray 09/27/18 15:57 IMPRESSION: Bibasilar atelectasis. Otherwise, no acute process. Laboratory Results 09/27/18 15:50: WBC 6.4, RBC 3.29 L, Hgb 11.0 L, Hct 33.9 L, MCV 103.0 H, MCH 33.4 H, MCHC 32.4, RDW 12.9, RDW Differential 48.4 H, Plt Count 119 L, MPV 9.4, Immature Gran % (Auto) 0.200, Neut % (Auto) 66.8, Lymph % (Auto) 15.0 L, [place] % (Auto) 13.0 H, Eos % (Auto) 4.8, Baso % (Auto) 0.2, Absolute Neuts (auto) 4.3, Absolute Lymphs (auto) 0.96, Total Counted Not Reportable 09/27/18 15:50: Sodium 139, Potassium 3.9, Chloride 100, Carbon Dioxide 32.0, Anion Gap 7, BUN 35 H, Creatinine 1.97 H, Estim Creat Clear Calc 27.50, Est GFR (MDRD) Af Amer 42 L, Est GFR (MDRD) Non-Af 35 L, BUN/Creatinine Ratio 17.8, Glucose 138 H, Calcium 9.2, Total Bilirubin 0.40, AST 19, ALT 17, Alkaline Phosphatase 79, Troponin I < 0.015, Total Protein 6.2 L, Albumin 3.3, Globulin 2.9, Albumin/Globulin Ratio 1.1 09/27/18 15:50: B-Natriuretic Peptide 187.3 H Code Visit OBSV E&M: 25226 Initial observation care L3
[2018-09-27] MEDS: Sotalol Hydrochloride 80 MG Tablet 40 MG PO (22:34)
[2018-09-27] MEDS: Doxazosin 4 MG Tablet 8 MG PO (22:34)
[2018-09-27] MEDS: Clotrimazole 10 MG Troche MUCOUS MEM (22:35)
[2018-09-27] MEDS: Atorvastatin Calcium 20 MG Tablet PO (22:36)
[2018-09-27] MEDS: APIXABAN 2.5 MG TABLET PO (22:40)
[2018-09-27] MEDS: 0.9% Normal Saline 1,000 ML 100 ML IV (23:18)
[2018-09-27] MEDS: 0.9% NaCl Peripheral Flush Adult/Peds IV (23:30)
[2018-09-28] VITALS (11 sets, daily range): BP systolic 98–128; BP diastolic 39–53; PULSE 52–88; RESP 16–20; TEMP 36.4–36.9; O2SAT 91–97
[2018-09-28 03:17] LABS: Absolute Lymphocyte Count 0.99 X10^3/ul (0.83-4.51); Absolute Neutrophil Count 3.4 X10^3/uL (2.0-7.7); Basophil# 0.01 X10^3/uL; Basophil% 0.2 % (0-1); Eosinophil# 0.31 X10^3/uL; Eosinophils% 5.7 % (0-5); Hematocrit 31.2 % (40-54); Hemoglobin 10.1 g/dl (13.0-16.5); Lymphocyte # 0.99 X10^3/ul (4.0); Lymphocyte % 18.1 % (19-41); Mean Corp Hgb Conc 32.4 g/gl (32-36); Mean Corpuscular Volume 105.1 fL (80-94); Mean Platelet Vol. 9.2 fl (6.2-12.0); Monocyte# 0.74 X10^3/uL; Monocyte% 13.5 % (0-10); Neutrophil # 3.42 X10^3/uL (2.7-7.7); Neutrophil % 62.3 % (47-70); Platelet Count 109 K/mm3 (150-450); RBC Distribution Width CV 12.2 % (11.6-14.6); RBC Distribution Width SD 45.4 fl (35.1-43.9); Red Blood Count 2.97 M/mm3 (4.6-6.2); White Blood Count 5.5 K/mm3 (4.4-11.0)
[2018-09-28 03:21] LABS: POSITIVE COUNT NO; POSITIVE DIFFERENTIAL NO; POSITIVE MORPHOLOGY NO
[2018-09-28 03:43] LABS: Anion Gap 6 (5-15); BUN 36 mg/dL (7-18); BUN/Creat Ratio 21.4 RATIO (10-20); Calcium,Total 8.8 mg/dL (8.5-10.1); Chloride 104 mmol/L (98-107); Creatinine, Serum 1.68 mg/dL (0.70-1.30); EST Glomerular Filtration Rate 42 mL/min (>60); Est Glom Filt Rate - Afr Amer 51 mL/min (>60); Estimated Creatinine Clearance 32.24 ml/min; Glucose 88 mg/dL (74-106); Magnesium 2.4 mg/dL (1.6-2.6); Potassium 3.8 mmol/L (3.5-5.1); Sodium Level 141 mmol/L (136-145); Thyroid Stim Hormone (TSH) 1.45 uIU/mL (0.358-3.74)
[2018-09-28] MEDS: oxyCODONE 5 MG Tablet PO ×3 (04:36→22:11)
[2018-09-28] MEDS: Clotrimazole 10 MG Troche MUCOUS MEM ×5 (05:52→21:32)
--- NOTE | 2018-09-28 05:55 | ECHOD_ITS ---
Reason For Study: Near syncope Procedure This was a 2D Doppler, Color Flow transthoracic echocardiogram. Exam performed portable in patient room. Left Ventricle Normal size and thickness. The estimated ejection fraction is 65 %. Stage 1 diastolic dysfunction. No regional wall motion abnormalities noted. Right Ventricle Normal size and thickness. Normal systolic function. Atria The left atrium is mildly enlarged. Normal right atrium. Normal atrial septum. Mitral Valve The mitral valve is structurally normal. No prolapse or stenosis seen. Tricuspid Valve Normal tricuspid valve. Unable to estimate RV systolic pressure due to inadequate jet, pulmonary artery pressure probably normal. Aortic Valve Trisinus/trileaflet aortic valve. Mild diffuse aortic valve thickening. There is no aortic stenosis. Pulmonic Valve Normal pulmonic valve. Great Vessels Normal aortic root. Normal arch. Normal inferior vena cava. Inferior vena cava collapse with sniff. Pericardium/Pleural Trivial pericardial effusion. There are no echocardiographic indications of cardiac tamponade. MMode/2D Measurements & Calculations LVIDd: 4.2 cm IVSd: 1.2 cm Ao root diam: 3.6 cm LVIDs: 2.5 cm LVPWd: 1.2 cm LA dimension: 5.0 cm RVDd: 3.6 cm FS: 40.6 % LAV(MOD-bp): 82.8 ml LVAd ap4: 34.2 cm2 SV(MOD-sp4): 71.1 ml LAV(MOD-bp) Indexed: 39.6 ml/m2 EDV(MOD-sp4): 111.8 ml LAV(MOD-sp2): 90.3 ml EDV(sp4-el): 115.1 ml LAV(MOD-sp4): 79.7 ml LVAs ap4: 18.1 cm2 ESV(MOD-sp4): 40.7 ml ESV(sp4-el): 39.1 ml EF(MOD-sp4): 63.6 % EF(sp4-el): 66.0 % SV(sp4-el): 76.0 ml LA A4 area: 24.9 cm2 LA dimension(2D): 4.3 cm RA A4 area: 16.4 cm2 Doppler Measurements & Calculations MV E max kyle: 85.4 cm/sec Lat Peak E' Kyle: 4.8 cm/sec Med Peak E' Kyle: 6.2 cm/sec MV A max kyle: 122.5 cm/sec E/E' lat: 17.8 E/E' med: 13.8 MV E/A: 0.70 Ao V2 max: 156.9 cm/sec LV V1 max: 108.7 cm/sec PA V2 max: 108.6 cm/sec Ao max P.8 mmHg LV V1 max P.7 mmHg Interpretation Summary The estimated ejection fraction is 65 %. Stage 1 diastolic dysfunction. The left atrium is mildly enlarged. Unable to estimate RV systolic pressure due to inadequate jet, pulmonary artery pressure probably normal. Trivial pericardial effusion. There are no echocardiographic indications of cardiac tamponade. Compared to echo report dated 09/09/2015, LV function has remained the same, and pt appears to now be in NSR. Ordering Physician: Markus Paige Performed By: Juliana Weiss RDCS
[2018-09-28] MEDS: Budesonide Respules 0.5 MG/2 ML AMPUL.NEB. INHALATION ×2 (06:58→18:51)
[2018-09-28] MEDS: Ipratropium/Albuterol Sulfate 3 ML AMPUL.NEB INHALATION ×2 (06:58→18:51)
[2018-09-28] MEDS: APIXABAN 2.5 MG TABLET PO ×2 (09:44→21:32)
[2018-09-28] MEDS: ACITRETIN 25 MG PO (09:44)
[2018-09-28] MEDS: Polyethylene Glycol 3350 17 GM PACKET PO (09:45)
[2018-09-28] MEDS: 0.9% Normal Saline 1,000 ML 100 ML IV (09:51)
--- NOTE | 2018-09-28 16:20 | PCM.PN.HOSP ---
Patient Problems: Active and Suspected Problems Acute kidney injury (Acute) Generalized weakness (Acute) Near syncope (Acute) Subjective: Patient was seen and examined. On his chronic 2 L of oxygen. He denied any chest pain or dizziness or shortness of breath. He complains of urine frequency and urgency without dysuria. The scan showed urine around 60. Orthostatic vitals this morning was negative. Vitals/I&O's: Vital Signs Temp Pulse Resp BP Pulse Ox 98.2 F 64 16 128/53 H 97 09/28/18 15:08 09/28/18 15:35 09/28/18 15:08 09/28/18 15:08 09/28/18 15:08 Oxygen Flow Rate (L/min) 2 Oxygen Delivery Method Nasal Cannula Weight: 98.4 kg Body Mass Index (BMI) 34.0 Orthostatic Vital Signs Start: 09/27/18 22:55 Freq: q24h Status: Active Protocol: Activity Type Activity Date Activity User E-Sign Co-Sign Detail Recorded Client Recorded Date Recorded By Document 09/28/18 14:58 [facility] [id number] 09/28/18 15:08 ZZB 09/28/18 14:58 Orthostatic Vitals Standing -Blood Pressure (90/60-120/80) 128/53 H -Extremity Use Left Arm -Pulse Rate (60-100) 88 Sitting -Blood Pressure (90/60-120/80) 122/48 H -Extremity Use Left Arm -Pulse Rate (60-100) 83 Lying -Blood Pressure (90/60-120/80) 120/51 L -Extremity Use Left Arm -Pulse Rate (60-100) 80 Intake and Output for Last 24 Hours 09/26/18 09/27/18 09/28/18 23:59 23:59 23:59 Intake Total 190 / 190 1910 Balance 190 / 190 1910 General: Alert, Oriented x3, Cooperative, No apparent distress, - - on chronic 2L oxygen HEENT: Atraumatic, PERRLA, EOMI, Normocephalic Oral: Moist Mucosa Neck: Supple Lungs: Diminished Cardiovascular: Regular rate, Regular Rhythm, Normal S1, Normal S2, No murmurs Abdomen: Bowel Sounds Present, Soft, Non Tender, Non-Distended, No Hepato-splenomegaly Extremities: No edema Skin: No rashes, No breakdown Musculoskeletal: No Tenderness to Palpation of Joints or Extremities Lymphatic: No Cervical, Supraclavicular, or Inguinal Adenopathy Neurological: Cranial nerves II-XII grossly intact, Neuro grossly intact Psych/Mental Status: Normal Affect, Appropriate Laboratory Results 09/27/18 15:50: Sodium 139, Potassium 3.9, Chloride 100, Carbon Dioxide 32.0, Anion Gap 7, BUN 35 H, Creatinine 1.97 H, Estim Creat Clear Calc 27.50, Est GFR (MDRD) Af Amer 42 L, Est GFR (MDRD) Non-Af 35 L, BUN/Creatinine Ratio 17.8, Glucose 138 H, Calcium 9.2, Total Bilirubin 0.40, AST 19, ALT 17, Alkaline Phosphatase 79, Troponin I < 0.015, Total Protein 6.2 L, Albumin 3.3, Globulin 2.9, Albumin/Globulin Ratio 1.1 09/27/18 15:50: B-Natriuretic Peptide 187.3 H 09/27/18 21:17: Troponin I < 0.015 09/27/18 23:59: Troponin I < 0.015 09/28/18 02:51: Sodium 141, Potassium 3.8, Chloride 104, Carbon Dioxide 31.0, Anion Gap 6, BUN 36 H, Creatinine 1.68 H, Estim Creat Clear Calc 32.24, Est GFR (MDRD) Af Amer 51 L, Est GFR (MDRD) Non-Af 42 L, BUN/Creatinine Ratio 21.4 H, Glucose 88, Calcium 8.8, Magnesium 2.4, TSH 1.45 09/28/18 02:51: WBC 5.5, RBC 2.97 L, Hgb 10.1 L, Hct 31.2 L, MCV 105.1 H, MCH 34.0 H, MCHC 32.4, RDW 12.2, RDW Differential 45.4 H, Plt Count 109 L, MPV 9.2, Immature Gran % (Auto) 0.200, Neut % (Auto) 62.3, Lymph % (Auto) 18.1 L, [place] % (Auto) 13.5 H, Eos % (Auto) 5.7 H, Baso % (Auto) 0.2, Absolute Neuts (auto) 3.4, Absolute Lymphs (auto) 0.99, Total Counted Not Reportable 09/28/18 02:51: Troponin I < 0.015 Current Medications Acetaminophen (Tylenol) 650 mg PO Q6H PRN PRN PRN Reason: Mild Pain (scale 0-3)/T>100.7 Acitretin (Soriatane) 25 mg PO DAILY [facility] Last Admin: 09/28/18 09:44 Dose: 25 mg Al Hydroxide/Mg Hydroxide (Mylanta Ii) 30 ml PO Q6H PRN PRN PRN Reason: Gastric Burning Albuterol/Ipratropium (Duoneb) 3 ml INHALATION Q4H PRN PRN Reason: sob Albuterol/Ipratropium (Duoneb) 3 ml INHALATION Q6HWA.RT [facility] Last Admin: 09/28/18 13:45 Dose: Not Given Apixaban (Eliquis) 2.5 mg PO BID [facility] Last Admin: 09/28/18 09:44 Dose: 2.5 mg Atorvastatin Calcium (Lipitor) 20 mg PO QHS [facility] Last Admin: 09/27/18 22:36 Dose: 20 mg Bisacodyl (Dulcolax) 10 mg RECTAL DAILY PRN PRN PRN Reason: Constipation Budesonide (Pulmicort Aerosol) 0.5 mg INHALATION Q12H.RT [facility] Last Admin: 09/28/18 06:58 Dose: 0.5 mg Clotrimazole (Mycelex) 10 mg MUCOUS MEM 5X/DAY [facility] Last Admin: 09/28/18 15:21 Dose: 10 mg Docusate Sodium (Colace) 200 mg PO BID PRN PRN PRN Reason: Constipation Doxazosin Mesylate (Cardura) 8 mg PO QHS [facility] Metoclopramide HCl (Reglan) 5 mg IV Q6H PRN PRN PRN Reason: NAUSEA/VOMITING Nutritional Formula (Lactose Free) (Ensure Enlive) 120 ml PO 4X/DAY [facility] Last Admin: 09/28/18 15:20 Dose: Not Given Oxycodone HCl (Oxyir) 5 mg PO Q4H PRN PRN PRN Reason: Moderate Pain (pain scale 4-5) Last Admin: 09/28/18 15:22 Dose: 5 mg Polyethylene Glycol (Miralax) 17 gm PO DAILY [facility] Last Admin: 09/28/18 09:45 Dose: 17 gm Sodium Chloride () 5 - 15 ml IV UD PRN PRN Reason: SALINE FLUSH Last Admin: 09/27/18 23:30 Dose: 10 ml Sotalol HCl (Betapace (G)) 40 mg PO BID [facility] Last Admin: 09/28/18 09:46 Dose: Not Given Medical Necessity - Tobacco Use Smoking Status: Former smoker Assessment/Plan All Active Problems Acute kidney injury (Acute) Generalized weakness (Acute) Near syncope (Acute) 83-year-old with past medical history of non-Hodgkin's lymphoma, history of PE, chronic diastolic CHF, chronic respiratory failure secondary to COPD, on 2 L home oxygen, hyperlipidemia who comes in with complaints of dizziness and lightheadedness on standing or walking. 1. Near-syncope, improved, negative orthostatic vitals this morning, 2D echo shows EF of 65%, stage I diastolic dysfunction 2. Chronic diastolic CHF, stable not in acute exacerbation 3. COPD with chronic respiratory failure, on home 2 L of oxygen, no signs of exacerbation 4. History of non-Hodgkin's lymphoma, follows with oncology in the outpatient 5. 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 DVT PPx- Eliquis 7. Disposition: Dc tomorrow Code Visit Inpatient E&M: 26275 Subs Hosp L2
--- NOTE | 2018-09-28 16:27 | PN_ITS ---
Patient Problems: Active and Suspected Problems Acute kidney injury (Acute) Generalized weakness (Acute) Near syncope (Acute) Subjective: Patient was seen and examined. On his chronic 2 L of oxygen. He denied any chest pain or dizziness or shortness of breath. He complains of urine frequency and urgency without dysuria. The scan showed urine around 60. Orthostatic vitals this morning was negative. Vitals/I&O's: Vital Signs Temp Pulse Resp BP Pulse Ox 98.2 F 64 16 128/53 H 97 09/28/18 15:08 09/28/18 15:35 09/28/18 15:08 09/28/18 15:08 09/28/18 15:08 Oxygen Flow Rate (L/min) 2 Oxygen Delivery Method Nasal Cannula Weight: 98.4 kg Body Mass Index (BMI) 34.0 Orthostatic Vital Signs Start: 09/27/18 22:55 Freq: q24h Status: Active Protocol: Activity Type Activity Date Activity User E-Sign Co-Sign Detail Recorded Client Recorded Date Recorded By Document 09/28/18 14:58 BANNER [id number] 09/28/18 15:08 ZZB 09/28/18 14:58 Orthostatic Vitals Standing -Blood Pressure (90/60-120/80) 128/53 H -Extremity Use Left Arm -Pulse Rate (60-100) 88 Sitting -Blood Pressure (90/60-120/80) 122/48 H -Extremity Use Left Arm -Pulse Rate (60-100) 83 Lying -Blood Pressure (90/60-120/80) 120/51 L -Extremity Use Left Arm -Pulse Rate (60-100) 80 Intake and Output for Last 24 Hours 09/26/18 09/27/18 09/28/18 23:59 23:59 23:59 Intake Total 190 / 190 1910 Balance 190 / 190 1910 General: Alert, Oriented x3, Cooperative, No apparent distress, - - on chronic 2L oxygen HEENT: Atraumatic, PERRLA, EOMI, Normocephalic Oral: Moist Mucosa Neck: Supple Lungs: Diminished Cardiovascular: Regular rate, Regular Rhythm, Normal S1, Normal S2, No murmurs Abdomen: Bowel Sounds Present, Soft, Non Tender, Non-Distended, No Hepato- splenomegaly Extremities: No edema Skin: No rashes, No breakdown Musculoskeletal: No Tenderness to Palpation of Joints or Extremities Lymphatic: No Cervical, Supraclavicular, or Inguinal Adenopathy Neurological: Cranial nerves II-XII grossly intact, Neuro grossly intact Psych/Mental Status: Normal Affect, Appropriate Laboratory Results 09/27/18 15:50: Sodium 139, Potassium 3.9, Chloride 100, Carbon Dioxide 32.0, Anion Gap 7, BUN 35 H, Creatinine 1.97 H, Estim Creat Clear Calc 27.50, Est GFR (MDRD) Af Amer 42 L, Est GFR (MDRD) Non-Af 35 L, BUN/Creatinine Ratio 17.8, Glucose 138 H, Calcium 9.2, Total Bilirubin 0.40, AST 19, ALT 17, Alkaline Phosphatase 79, Troponin I < 0.015, Total Protein 6.2 L, Albumin 3.3, Globulin 2.9, Albumin/Globulin Ratio 1.1 09/27/18 15:50: B-Natriuretic Peptide 187.3 H 09/27/18 21:17: Troponin I < 0.015 09/27/18 23:59: Troponin I < 0.015 09/28/18 02:51: Sodium 141, Potassium 3.8, Chloride 104, Carbon Dioxide 31.0, Anion Gap 6, BUN 36 H, Creatinine 1.68 H, Estim Creat Clear Calc 32.24, Est GFR (MDRD) Af Amer 51 L, Est GFR (MDRD) Non-Af 42 L, BUN/Creatinine Ratio 21.4 H, Glucose 88, Calcium 8.8, Magnesium 2.4, TSH 1.45 09/28/18 02:51: WBC 5.5, RBC 2.97 L, Hgb 10.1 L, Hct 31.2 L, MCV 105.1 H, MCH 34.0 H, MCHC 32.4, RDW 12.2, RDW Differential 45.4 H, Plt Count 109 L, MPV 9.2, Immature Gran % (Auto) 0.200, Neut % (Auto) 62.3, Lymph % (Auto) 18.1 L, [place] % (Auto) 13.5 H, Eos % (Auto) 5.7 H, Baso % (Auto) 0.2, Absolute Neuts (auto) 3.4, Absolute Lymphs (auto) 0.99, Total Counted Not Reportable 09/28/18 02:51: Troponin I < 0.015 Current Medications Acetaminophen (Tylenol) 650 mg PO Q6H PRN PRN PRN Reason: Mild Pain (scale 0-3)/T>100.7 Acitretin (Soriatane) 25 mg PO DAILY [facility] Last Admin: 09/28/18 09:44 Dose: 25 mg Al Hydroxide/Mg Hydroxide (Mylanta Ii) 30 ml PO Q6H PRN PRN PRN Reason: Gastric Burning Albuterol/Ipratropium (Duoneb) 3 ml INHALATION Q4H PRN PRN Reason: sob Albuterol/Ipratropium (Duoneb) 3 ml INHALATION Q6HWA.RT [facility] Last Admin: 09/28/18 13:45 Dose: Not Given Apixaban (Eliquis) 2.5 mg PO BID [facility] Last Admin: 09/28/18 09:44 Dose: 2.5 mg Atorvastatin Calcium (Lipitor) 20 mg PO QHS [facility] Last Admin: 09/27/18 22:36 Dose: 20 mg Bisacodyl (Dulcolax) 10 mg RECTAL DAILY PRN PRN PRN Reason: Constipation Budesonide (Pulmicort Aerosol) 0.5 mg INHALATION Q12H.RT [facility] Last Admin: 09/28/18 06:58 Dose: 0.5 mg Clotrimazole (Mycelex) 10 mg MUCOUS MEM 5X/DAY [facility] Last Admin: 09/28/18 15:21 Dose: 10 mg Docusate Sodium (Colace) 200 mg PO BID PRN PRN PRN Reason: Constipation Doxazosin Mesylate (Cardura) 8 mg PO QHS [facility] Metoclopramide HCl (Reglan) 5 mg IV Q6H PRN PRN PRN Reason: NAUSEA/VOMITING Nutritional Formula (Lactose Free) (Ensure Enlive) 120 ml PO 4X/DAY [facility] Last Admin: 09/28/18 15:20 Dose: Not Given Oxycodone HCl (Oxyir) 5 mg PO Q4H PRN PRN PRN Reason: Moderate Pain (pain scale 4-5) Last Admin: 09/28/18 15:22 Dose: 5 mg Polyethylene Glycol (Miralax) 17 gm PO DAILY [facility] Last Admin: 09/28/18 09:45 Dose: 17 gm Sodium Chloride () 5 - 15 ml IV UD PRN PRN Reason: SALINE FLUSH Last Admin: 09/27/18 23:30 Dose: 10 ml Sotalol HCl (Betapace (G)) 40 mg PO BID [facility] Last Admin: 09/28/18 09:46 Dose: Not Given Medical Necessity - Tobacco Use Smoking Status: Former smoker Assessment/Plan All Active Problems Acute kidney injury (Acute) Generalized weakness (Acute) Near syncope (Acute) 83-year-old with past medical history of non-Hodgkin's lymphoma, history of PE, chronic diastolic CHF, chronic respiratory failure secondary to COPD, on 2 L home oxygen, hyperlipidemia who comes in with complaints of dizziness and lightheadedness on standing or walking. 1. Near-syncope, improved, negative orthostatic vitals this morning, 2D echo shows EF of 65%, stage I diastolic dysfunction 2. Chronic diastolic CHF, stable not in acute exacerbation 3. COPD with chronic respiratory failure, on home 2 L of oxygen, no signs of exacerbation 4. History of non-Hodgkin's lymphoma, follows with oncology in the outpatient 5. 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 DVT PPx- Eliquis 7. Disposition: Dc tomorrow Code Visit Inpatient E&M: 53350 Subs Hosp L2
[2018-09-28] MEDS: Atorvastatin Calcium 20 MG Tablet PO (21:31)
[2018-09-28] MEDS: Doxazosin 4 MG Tablet 8 MG PO (21:31)
[2018-09-28] MEDS: Sotalol Hydrochloride 80 MG Tablet 40 MG PO (21:32)
[2018-09-29 02:53] VITALS: PULSE 62
[2018-09-29 03:50] VITALS: BP 122/52; PULSE 75; RESP 18; TEMP 36.6; O2SAT 94
[2018-09-29] MEDS: Clotrimazole 10 MG Troche MUCOUS MEM ×2 (06:06→10:33)
[2018-09-29 07:15] VITALS: PULSE 57
[2018-09-29 07:21] LABS: Absolute Lymphocyte Count 0.71 X10^3/ul (0.83-4.51); Absolute Neutrophil Count 3.2 X10^3/uL (2.0-7.7); Basophil# 0.01 X10^3/uL; Basophil% 0.2 % (0-1); Eosinophil# 0.37 X10^3/uL; Eosinophils% 7.4 % (0-5); Hematocrit 30.3 % (40-54); Hemoglobin 9.7 g/dl (13.0-16.5); Lymphocyte # 0.71 X10^3/ul (4.0); Lymphocyte % 14.3 % (19-41); Mean Corpuscular Hgb 34.3 pg (27.0-32.0); Mean Corpuscular Volume 107.1 fL (80-94); Mean Platelet Vol. 9.6 fl (6.2-12.0); Monocyte# 0.69 X10^3/uL; Monocyte% 13.9 % (0-10); Neutrophil # 3.19 X10^3/uL (2.7-7.7); Platelet Count 112 K/mm3 (150-450); RBC Distribution Width CV 12.3 % (11.6-14.6); RBC Distribution Width SD 47.1 fl (35.1-43.9); Red Blood Count 2.83 M/mm3 (4.6-6.2)
[2018-09-29 07:24] LABS: POSITIVE COUNT NO; POSITIVE DIFFERENTIAL NO; POSITIVE MORPHOLOGY NO
[2018-09-29 07:28] VITALS: PULSE 80; RESP 22; O2SAT 93
[2018-09-29] MEDS: Ipratropium/Albuterol Sulfate 3 ML AMPUL.NEB INHALATION (07:28)
[2018-09-29] MEDS: Budesonide Respules 0.5 MG/2 ML AMPUL.NEB. INHALATION (07:28)
[2018-09-29 07:43] LABS: Anion Gap 5 (5-15); BUN 28 mg/dL (7-18); BUN/Creat Ratio 21.2 RATIO (10-20); Chloride 109 mmol/L (98-107); Creatinine, Serum 1.32 mg/dL (0.70-1.30); EST Glomerular Filtration Rate 55 mL/min (>60); Est Glom Filt Rate - Afr Amer 67 mL/min (>60); Estimated Creatinine Clearance 41.03 ml/min; Glucose 80 mg/dL (74-106); Sodium Level 143 mmol/L (136-145)
[2018-09-29 09:40] VITALS: BP 105/53; PULSE 63; RESP 18; TEMP 36.6; O2SAT 97
[2018-09-29] MEDS: Sotalol Hydrochloride 80 MG Tablet 40 MG PO (10:31)
[2018-09-29] MEDS: APIXABAN 2.5 MG TABLET PO (10:31)
[2018-09-29] MEDS: ACITRETIN 25 MG PO (10:32)
[2018-09-29] MEDS: oxyCODONE 5 MG Tablet PO (10:36)
[2018-09-29] MEDS: Acetaminophen 325 MG Tablet 650 MG PO (10:37)
--- NOTE | 2018-09-29 12:47 | PCM.DC ---
- Discharge Diagnoses Current Active Problems: Current Active and Chronic Problems Acute kidney injury (Acute) Generalized weakness (Acute) Near syncope (Acute) Pityriasis rubra pilaris (Chronic) Chronic a-fib (Chronic) Follicular lymphoma (Chronic) NHL (non-Hodgkin's lymphoma) (Chronic) Chronic diastolic heart failure (Chronic) COPD (Chronic) Restless leg disorder (Chronic) Chronic normocytic normochromic anemia (Chronic) Reason(s) for Visit for Discharge Instructions: Near-syncope You will use the following diet at home:: Cardiac Your food should be the consistency of: Regular Your liquids should be the consistency of: Regular/Thin Discharge Activity: Return to Normal Activity Additional Instructions: Please take note of changes to your medications especially your blood pressure medications. You need to have your blood pressure taken at your primary care doctor's office. Some of your blood pressure medications may be restarted. You will also need to have your kidney function test done when you see your primary care doctor. Contnue to follow a low salt diet. Restrict your total fluid intake to less than 1500mls a day Allergies/Adverse Reactions: Allergies Iodinated Contrast- Oral and IV Dye [Iodinated Contrast Media - Oral and] Allergy (Verified 09/27/18 15:11) Hives Medications to take at Discharge Apixaban [Eliquis] 5 mg PO BID 06/23/16 Atorvastatin Calcium [Lipitor] 20 mg PO QHS 06/23/16 Budesonide/Formoterol 160/4.5 [Symbicort 160/4.5 Mcg Inhaler (SP)] 1 puff INHALATION BID 06/23/16 Sotalol HCl [Betapace AF (Beta [place])] 40 mg PO BID 06/23/16 Acitretin 25 mg PO DAILY 09/27/18 Albuterol Sulfate [Proventil Hfa] 6.7 gm IH Q4H PRN PRN 09/27/18 Clotrimazole 10 mg PO 5X/DAY 09/27/18 Ondansetron [Zofran] 8 mg PO Q8H PRN PRN 09/27/18 Tiotropium [place] [Spiriva Respimat] 2 puff INHALATION DAILY 09/27/18 Ensure Enlive 120 ml PO 4X/DAY #120 liquid 09/29/18 Furosemide [Lasix] 20 mg PO DAILY #30 tablet 09/29/18 The following prescriptions were given: Ensure Enlive 120 ml PO 4X/DAY #120 liquid Primary Care Physician: Jethro Dennis DO [Primary Care Provider] - Please follow up with your Primary Care Physician in: within 1-2 weeks Test Results: Test results from this visit will be discussed in further detail at your follow-up appointment, if applicable. When: Dr. Bardales within 1-2 weeks Proposed Discharge Date: 09/29/18
--- NOTE | 2018-09-29 12:51 | DCINST_ITS ---
- Discharge Diagnoses Current Active Problems: Current Active and Chronic Problems Acute kidney injury (Acute) Generalized weakness (Acute) Near syncope (Acute) Pityriasis rubra pilaris (Chronic) Chronic a-fib (Chronic) Follicular lymphoma (Chronic) NHL (non-Hodgkin's lymphoma) (Chronic) Chronic diastolic heart failure (Chronic) COPD (Chronic) Restless leg disorder (Chronic) Chronic normocytic normochromic anemia (Chronic) Reason(s) for Visit for Discharge Instructions: Near-syncope You will use the following diet at home:: Cardiac Your food should be the consistency of: Regular Your liquids should be the consistency of: Regular/Thin Discharge Activity: Return to Normal Activity Additional Instructions: Please take note of changes to your medications especially your blood pressure medications. You need to have your blood pressure taken at your primary care doctor's office. Some of your blood pressure medications may be restarted. You will also need to have your kidney function t est done when you see your primary care doctor. Contnue to follow a low salt diet. Restrict your total fluid intake to less than 1500mls a day Allergies/Adverse Reactions: Allergies Iodinated Contrast- Oral and IV Dye [Iodinated Contrast Media - Oral and] Allergy (Verified 09/27/18 15:11) Hives Medications to take at Discharge Apixaban [Eliquis] 5 mg PO BID 06/23/16 Atorvastatin Calcium [Lipitor] 20 mg PO QHS 06/23/16 Budesonide/Formoterol 160/4.5 [Symbicort 160/4.5 Mcg Inhaler (SP)] 1 puff INHALATION BID 06/23/16 Sotalol HCl [Betapace AF (Beta [place])] 40 mg PO BID 06/23/16 Acitretin 25 mg PO DAILY 09/27/18 Albuterol Sulfate [Proventil Hfa] 6.7 gm IH Q4H PRN PRN 09/27/18 Clotrimazole 10 mg PO 5X/DAY 09/27/18 Ondansetron [Zofran] 8 mg PO Q8H PRN PRN 09/27/18 Tiotropium [place] [Spiriva Respimat] 2 puff INHALATION DAILY 09/27/18 Ensure Enlive 120 ml PO 4X/DAY #120 liquid 09/29/18 Furosemide [Lasix] 20 mg PO DAILY #30 tablet 03/17/19 The following prescriptions were given: Ensure Enlive 120 ml PO 4X/DAY #120 liquid Primary Care Physician: Jethro Dennis DO [Primary Care Provider] - Please follow up with your Primary Care Physician in: within 1-2 weeks Test Results: Test results from this visit will be discussed in further detail at your follow- up appointment, if applicable. When: Dr. Bardales within 1-2 weeks Proposed Discharge Date: 09/29/18
--- NOTE | 2018-09-29 12:56 | DS.PCM_ITS ---
Discharge Date and Diagnosis Date of Admission: 09/27/18 Date of Discharge: 09/29/18 - Primary Discharge Diagnosis Active and Suspected Problems Acute kidney injury (Acute) on CKD stage 3 Generalized weakness (Acute) Near syncope (Acute) - Secondary Discharge Diagnosis Chronic Problems Pityriasis rubra pilaris (Chronic) Chronic a-fib (Chronic) Follicular lymphoma (Chronic) NHL (non-Hodgkin's lymphoma) (Chronic) Chronic diastolic heart failure (Chronic) COPD (Chronic) Restless leg disorder (Chronic) Chronic normocytic normochromic anemia (Chronic) Hospital Course and Treatment Imaging Results: Clinical Impression(s) from Imaging Studies Chest X-Ray 09/27/18 15:57 IMPRESSION: Bibasilar atelectasis. Otherwise, no acute process. Electronically Signed: Leanne Wood MD at 16:30 EDT Tel , Service support , None Operations: None Procedures: None Summary of Care Provided: 83-year-old with past medical history of non-Hodgkin's lymphoma, history of PE, chronic diastolic CHF, chronic respiratory failure secondary to COPD, on 2 L justina e oxygen, hyperlipidemia who comes in with complaints of dizziness and lightheadedness on standing or walking. Patient was admitted to the telemetry bed, received IV fluids. Started vitals were negative the next morning. Patient's creatinine improved 0.97 on admission to 1.32. He was kept off his Lasix. He was restarted on 20 mg Lasix daily. He needs to follow-up with his primary care doctor for repeat blood work within a week to check on his kidney function. Hew complained of incomplete emptying of the bladder. Denied any dysuria or fever or chills. Bladder scan showed only 60 mils of urine. His blood pressure was also relatively low. He was continued only on his sotalol. He was told to follow-up with his primary care doctor and discuss slow reintroduction of his blood pressure medications. Follow-up with his other specialists as scheduled Subjective: On the day of discharge, patient was seen and examined. He denied any complaints. He felt improved. He had walked around with physical therapy. He was stable on his home 2 L of oxygen. Objective: Physical exam: General: Alert, Oriented x3, Cooperative, No apparent distress, - - on chronic 2L oxygen HEENT: Atraumatic, PERRLA, EOMI, Normocephalic Oral: Moist Mucosa Neck: Supple Lungs: Diminished Cardiovascular: Regular rate, Regular Rhythm, Normal S1, Normal S2, No murmurs Abdomen: Bowel Sounds Present, Soft, Non Tender, Non-Distended, No Hepato- splenomegaly Extremities: No edema Skin: No rashes, No breakdown Musculoskeletal: No Tenderness to Palpation of Joints or Extremities Lymphatic: No Cervical, Supraclavicular, or Inguinal Adenopathy Neurological: Cranial nerves II-XII grossly intact, Neuro grossly intact Psych/Mental Status: Normal Affect, Appropriate - Physical Exam Vital Signs Temp Pulse Resp BP Pulse Ox 98 F 63 18 105/53 L 97 09/29/18 09:40 09/29/18 09:40 09/29/18 09:40 09/29/18 09:40 09/29/18 09:40 Oxygen Flow Rate (L/min) 3 Oxygen Delivery Method Room Air Weight: 99.2 kg Body Mass Index (BMI) 34.0 Orthostatic Vital Signs Start: 09/27/18 22:55 Freq: q24h Status: Active Protocol: Activity Type Activity Date Activity User E-Sign Co-Sign Detail Recorded Client Recorded Date Recorded By Document 09/28/18 14:58 B [id number] 09/28/18 15:08 ZZB 09/28/18 14:58 Orthostatic Vitals Standing -Blood Pressure (90/60-120/80 mm Hg) 128/53 H -Extremity Use Left Arm -Pulse Rate (60-100 beats/min) 88 Sitting -Blood Pressure (90/60-120/80 mm Hg) 122/48 H -Extremity Use Left Arm -Pulse Rate (60-100 beats/min) 83 Lying -Blood Pressure (90/60-120/80 mm Hg) 120/51 L -Extremity Use Left Arm -Pulse Rate (60-100 beats/min) 80 Intake and Output for Last 24 Hours 09/27/18 09/28/18 09/29/18 23:59 23:59 23:59 Intake Total 190 / 190 2151 / 2151 480 / 480 Output Total 475 / 475 Balance 190 / 190 2151 / 2151 5 / 5 Laboratory Tests Past 24 Hrs 09/29/18 09/29/18 06:15 06:15 WBC 5.0 RBC 2.83 L Hgb 9.7 L Hct 30.3 L MCV 107.1 H MCH 34.3 H MCHC 32.0 RDW 12.3 RDW Differential 47.1 H Plt Count 112 L MPV 9.6 Immature Gran % (Auto) 0.200 Neut % (Auto) 64.0 Lymph % (Auto) 14.3 L [place] % (Auto) 13.9 H Eos % (Auto) 7.4 H Baso % (Auto) 0.2 Absolute Neuts (auto) 3.2 Absolute Lymphs (auto) 0.71 L Total Counted Not Reportable Sodium 143 Potassium 4.0 Chloride 109 H Carbon Dioxide 29.0 Anion Gap 5 BUN 28 H Creatinine 1.32 H Estim Creat Clear Calc 41.03 Est GFR (MDRD) Af Amer 67 Est GFR (MDRD) Non-Af 55 L BUN/Creatinine Ratio 21.2 H Glucose 80 Calcium 9.0 Discharge Diet: Low fat/ Low Cholesterol, 2000 mg Sodium Diet Discharge Activity: Return to Normal Activity Home Medications: Medications to take at Discharge Apixaban [Eliquis] 5 mg PO BID 06/23/16 Atorvastatin Calcium [Lipitor] 20 mg PO QHS 06/23/16 Budesonide/Formoterol 160/4.5 [Symbicort 160/4.5 Mcg Inhaler (SP)] 1 puff INHALATION BID 06/23/16 Sotalol HCl [Betapace AF (Beta [place])] 40 mg PO BID 06/23/16 Acitretin 25 mg PO DAILY 09/27/18 Albuterol Sulfate [Proventil Hfa] 6.7 gm IH Q4H PRN PRN 09/27/18 Clotrimazole 10 mg PO 5X/DAY 09/27/18 Ondansetron [Zofran] 8 mg PO Q8H PRN PRN 09/27/18 Tiotropium [place] [Spiriva Respimat] 2 puff INHALATION DAILY 09/27/18 Ensure Enlive 120 ml PO 4X/DAY #120 liquid 09/29/18 Furosemide [Lasix] 20 mg PO DAILY #30 tablet 09/29/18 Following Prescrptions Were Given to Patient: Furosemide [Lasix] 20 mg PO DAILY #30 tablet Ensure Enlive 120 ml PO 4X/DAY #120 liquid Primary Care Physician: Jethro Dennis DO [Primary Care Provider] - Please follow up with your Primary Care Physician in: within 1-2 weeks When: Dr. Bardales within 1-2 weeks Disposition: Home Minutes spent on discharge:: 40 Patient Condition:: Stable Medical Necessity - Tobacco Use Smoking Status: Former smoker Tobacco Use: Non-smoker Meaningful Use Info Meaningful Use Diagnoses (Choose all that apply): None applicable Code Visit OBSV E&M: 85294 Observation care discharge
--- NOTE | 2018-09-29 13:08 | NURSING ---
Per OT pt walked in hallway maintaining saturation of 93% on 3L
== END 2018-09-29 12:55 | disposition home or self-care (01) ==
LOC: ED 18:02 → PCU 19:34
PROVIDERS: Admitting Provider Internal Medicine; Emergency Provider Emergency Medicine; Family Provider Family Medicine; PCP Family Medicine; Visit Provider Internal Medicine
DX: R55 Syncope and collapse (principal); N17.9 Acute kidney failure, unspecified; N18.3 Chronic kidney disease, stage 3 (moderate); J44.9 Chronic obstructive pulmonary disease, unspecified; L44.0 Pityriasis rubra pilaris; C85.90 Non-Hodgkin lymphoma, unspecified, unspecified site; I48.2 Chronic atrial fibrillation; I50.32 Chronic diastolic (congestive) heart failure; G25.81 Restless legs syndrome; C82.90 Follicular lymphoma, unspecified, unspecified site; N40.1 Benign prostatic hyperplasia with lower urinary tract symptoms; R39.12 Poor urinary stream; D64.9 Anemia, unspecified; J96.10 Chronic respiratory failure, unspecified whether with hypoxia or hypercapnia; Z99.81 Dependence on supplemental oxygen; Z79.899 Other long term (current) drug therapy; Z79.51 Long term (current) use of inhaled steroids; Z79.01 Long term (current) use of anticoagulants; Z87.891 Personal history of nicotine dependence; Z86.711 Personal history of pulmonary embolism
CPT/HCPCS: 36415; 71046; 80048; 80053; 83735; 83880; 84443; 84484; 85025; 93005; 93306; 94640; 96360; 96361; 97116; 97162; 97166; 97530; 97535; 97802; 99218; 99283; J7030; J7040; J7050; A4216; G0378

== ENCOUNTER 2019-12-15 17:42 | Inpatient (IN) | payer MEDICARE, OTHER, SELFPAY ==
[2019-12-15] VITALS (8 sets, daily range): BP systolic 124–158; BP diastolic 67–92; PULSE 84–110; RESP 16–24; TEMP 36.7–36.9; O2SAT 93–97; BMI 34.4
--- NOTE | 2019-12-15 18:38 | EKG12_ITS ---
Test Reason : SOB Blood Pressure : / mmHG Vent. Rate : 098 BPM Atrial Rate : 084 BPM P-R Int : 000 ms QRS Dur : 072 ms QT Int : 338 ms P-R-T Axes : 000 027 073 degrees QTc Int : 431 ms Atrial fibrillation Low voltage QRS (LIMB LEADS) Abnormal ECG Confirmed by MARISELA SERRATO, TATA ([id number]), medical editor JANNET RODRÍGUEZ ([id number]) on 12/18/2019 10:35:53 AM Referred By: ELENO Confirmed By:TATA ANTONIO MD
--- NOTE | 2019-12-15 18:40 | ED.DCSUM_ITS ---
- ER Visit Summary Date of Service: 12/15/19 Chief Complaint: Shortness of breath History of Present Illness: The patient is a 84 M who presents with shortness of breath that is been getting worse over the past 3 weeks. Patient states he has not been eating and drinking because he has some sores around his mouth. Patient admits to a skin infection in his nose. Patient states he is coughing up some yellow and brown sputum. Patient admits to some rhinorrhea. Patient states his breathing is worse with any exertion. Patient denies any fevers or chills. Patient is a patient of [facility]. Patient states he called the hospice nurse jorge luis and told him he was coming to the emergency department. Physical Examination: Vital signs are stable except for mild tachypnea of 24. Patient is afebrile. Patient is in no acute distress. Oral mucosa is pink and moist. Neck is supple. Trachea is midline. There is no JVD. Heart was irregularly irregular. Lungs showed rhonchi in the bases bilaterally. Abdomen is soft. Bowel sounds are normal. There is no tenderness. Cranial nerves II through XII are grossly intact. There are no focal motor or sensory deficits noted. Extremities are intact. There is no calf tenderness or edema. Test Results: Portable chest x-ray shows COPD/emphysema. There is no acute cardiopulmonary process noted. This was interpreted by the radiologist and myself. CBC was essentially within normal limits. Comprehensive metabolic profile showed a CO2 of 39 and a BUN of 23. The remainder was within normal limits. PT with INR and PTT were within normal limits. Urinalysis does not show any evidence of urinary tract infection. Troponin was normal. EKG showed atrial fibrillation with a rate of 96. There are no acute ST or T wave changes. Blood cultures were obtained. Emergency Department Course and Treatment: Patient ambulated to the bathroom and back and his pulse oximeter dropped to 83% on his normal 4 L of oxygen. Patient states he was feeling weaker. [facility] was in to evaluate the patient and the patient wants to withdraw his hospice at this time and wants to be admitted to the hospital. Case was discussed with the hospitalist. He was in to evaluate the patient and will admit the patient for observation. Patient understood and was agreeable with the plan. All questions were answered. Disposition: Admit to hospital Impression: 1. Hypoxia 2. History of non-Hodgkin's lymphoma This note was generated with [employer] dictation software. It may contain incorrect words, spelling, and punctuation that were not noted in review of the chart prior to signing ED Disposition - Plan for ED Patient: Disposition: Home or Assisted Living Diagnosis: Hypoxia, General weakness, NHL (non-Hodgkin's lymphoma) Referrals: Jethro Dennis DO [Primary Care Provider] -
[2019-12-15] MEDS: Ipratropium/Albuterol Sulfate 3 ML AMPUL.NEB INHALATION (18:58)
--- NOTE | 2019-12-15 19:00 | RAD_ITS ---
STUDY: X-RAY CHEST REASON FOR EXAM: Male, 84 years old. SOB X3 WEEKS, COPD TECHNIQUE: Single AP portable view of the chest. COMPARISON: September 27, 2018. FINDINGS: Chronic pulmonary vascular congestion and mild superimposed interstitial edema of the bilateral mid to lower lung gu[place] reidentified. Chronic appearing interstitial scarring/fibrosis of the bilateral lower lobes reidentified. Cystic emphysematous changes are present as well as hyperinflation. No visualized pleural effusion. Normal size heart. The remaining structures are stable. RAD/Chest 1 View (Portable) IMPRESSION: COPD/emphysema Electronically Signed: Tramaine Sutton MD at 19:29 EDT , Service support ,
[2019-12-15 19:02] LABS: Absolute Lymphocyte Count 1.62 X10^3/uL (0.83-4.51); Absolute Neutrophil Count 5.5 X10^3/uL (2.0-7.7); Basophil# 0.04 X10^3/uL; Basophil% 0.5 % (0-1); Eosinophils% 2.4 % (0-5); Hematocrit 42.6 % (40-54); Hemoglobin 13.6 g/dL (13.0-16.5); Lymphocyte # 1.62 X10^3/ul (4.0); Lymphocyte % 19.2 % (19-41); Mean Corp Hgb Conc 31.9 g/dL (32-36); Mean Corpuscular Hgb 33.8 pg (27.0-32.0); Mean Platelet Vol. 9.3 fl (6.2-12.0); Monocyte# 0.83 X10^3/uL; Monocyte% 9.8 % (0-10); NRBC Flagged by Analyzer 0 % (0-5); Neutrophil # 5.54 X10^3/uL (2.7-7.7); Neutrophil % 65.6 % (47-70); Platelet Count 134 K/mm3 (150-450); RBC Distribution Width CV 12.7 % (11.6-14.6); RBC Distribution Width SD 49.7 fl (35.1-43.9); Red Blood Count 4.02 M/mm3 (4.6-6.2); White Blood Count 8.4 K/mm3 (4.4-11.0)
[2019-12-15 19:07] LABS: International Normalized Ratio 1.4; Prothrombin Time (Protime)PT. 16.3 SECONDS (11.7-14.9)
[2019-12-15 19:08] LABS: Partial Thromboplast Time 34.8 Seconds (24.1-36.2)
[2019-12-15 19:21] LABS: ALB/GLOB Ratio 0.9 RATIO (0.9-2.4); AST(SGOT) 17 U/L (15-37); Alanine Aminotransfer ALT/SGPT 19 U/L (16-61); Albumin, Serum 2.9 g/dL (3.2-5.0); Alkaline Phosphatase 94 U/L (45-117); Anion Gap 4 (5-15); BUN 23 mg/dL (7-18); BUN/Creat Ratio 20.5 RATIO (10-20); Calcium,Total 9.7 mg/dL (8.5-10.1); Chloride 97 mmol/L (98-107); Creatinine, Serum 1.12 mg/dL (0.70-1.30); EST Glomerular Filtration Rate 67 mL/min (>60); Est Glom Filt Rate - Afr Amer 81 mL/min (>60); Estimated Creatinine Clearance 47.54 ml/min; Globulin 3.3 g/dL (2.2-4.2); Glucose 80 mg/dL (74-106); Potassium 4.4 mmol/L (3.5-5.1); Protein, Total 6.2 g/dL (6.4-8.2); Sodium Level 140 mmol/L (136-145)
[2019-12-15 19:55] LABS: Bacteria 0 SEEN /hpf (None Seen); Mucous, Urine 0 SEEN /hpf (<or=2+); Red Blood Cells-Urine 0 SEEN /hpf (0-5); Squamous Epithelial Cells - UA 0 SEEN /hpf (0-5); White Blood Cells 0 SEEN /hpf (0-5)
[2019-12-15 19:59] LABS: Color, Urine Yellow (Yellow); Glucose, Dipstick Normal (Normal); Ketone-Dipstick Negative (Negative); Leukocyte Esterase-Dipstick Negative /ul (Negative); Nitrite-Dipstick Negative (Negative); Occult Blood-Urine Negative /ul (Negative); Protein-Dipstick Negative (Negative); Specific Gravity, Urine 1.015 (1.002-1.030); Urine Bilirubin Dipstick Negative (Negative); Urine Clarity Clear (Clear); Urine Urobilinogen Normal (Normal)
[2019-12-15 20:08] LABS: Lactic Acid 1.1 mmol/L (0.4-1.9)
[2019-12-15 20:27] LABS: Hyaline Cast 0-5 SEEN /lpf (0-5)
--- NOTE | 2019-12-15 21:50 | ED.RN ---
[facility] [phone]. in er to review plan of care. discussed care with yvonne dolan, aware of admission due to low pulse ox with ambulation from 93 on 4 l nc to 83% when amulating about 20 ft.
--- NOTE | 2019-12-15 22:34 | HP.PCM_ITS ---
Problem List (1) Generalized weakness Status: Acute (2) Pityriasis rubra pilaris Status: Chronic (3) Chronic a-fib Status: Chronic (4) NHL (non-Hodgkin's lymphoma) Status: Chronic (5) Chronic diastolic heart failure Status: Chronic (6) COPD Status: Acute (7) Restless leg disorder Status: Chronic (8) Chronic normocytic normochromic anemia Status: Chronic (9) Hypoxia Status: Acute History of Present Illness Date of Admission: 12/15/19 Chief Complaint: shortness of breath The patient is a 84 year old male patient with a significant past medical history of non-Hodgkin's lymphoma who was in hospice care until this evening(revoked) reports shortness of breath. Onset of shortness of breath symptoms began 3 weeks ago and have progressively become worse. Despite being on chronic oxygen at home the patient desaturates to low 80% with any exertion here in the hospital and becomes weak. The patient's been unable to eat very much or drink due to sores in his mouth. Chest x-ray and laboratory studies are unremarkable however due to hypoxia and requested patient he will be admitted for observation for supportive care overnight and he agrees to have a hospice care consult with [facility] tomorrow. The patient wishes to be DNR. Past Medical History Past Medical History (Chronic Problems): Chronic Problems Pityriasis rubra pilaris (Chronic) Chronic a-fib (Chronic) Follicular lymphoma (Chronic) NHL (non-Hodgkin's lymphoma) (Chronic) Chronic diastolic heart failure (Chronic) Restless leg disorder (Chronic) Chronic normocytic normochromic anemia (Chronic) Allergies Iodinated Contrast Media [Iodinated Contrast Media - Oral and] Allergy (Verified 12/15/19 17:49) Hives Home Medications: Ambulatory Orders Medication Instructions Recorded Apixaban [Eliquis] 5 mg PO BID 06/23/16 Atorvastatin Calcium [Lipitor] 20 mg PO QHS 06/23/16 Budesonide/Formoterol 160/4.5 1 puff INHALATION BID 06/23/16 [Symbicort 160/4.5 Mcg Inhaler (SP)] Sotalol HCl [Betapace AF (Beta 40 mg PO BID 06/23/16 [place])] Albuterol Sulfate [Proventil Hfa] 6.7 gm IH Q4H PRN PRN 09/27/18 Ondansetron [Zofran] 8 mg PO Q8H PRN PRN 09/27/18 Furosemide [Lasix] 20 mg PO DAILY #30 tablet 09/29/18 Bxm Liquid [BMX LIQUID] 10 ml PO QHS 12/15/19 Doxazosin Mesylate [Cardura] 2 mg PO DAILY 12/15/19 Fluticasone 0.05% [Flonase Nasal 1 spray NASAL DAILY 12/15/19 [place]] Guaifenesin [Mucinex] 600 mg PO Q12H 12/15/19 Hydrocortisone [Cortisone] 1 applicatio TP BID 12/15/19 Ipratropium/Albuterol Sulfate 3 ml INHALATION Q4H.RT 12/15/19 [Duoneb] Lorazepam [Ativan] 0.5 mg PO Q4H PRN PRN 12/15/19 Magic Mouth Wash 15 ml PO Q4H 12/15/19 Polyethylene Glycol 3350 [Miralax] 17 gm PO DAILY 12/15/19 Prednisone 10 mg PO DAILY 12/15/19 Zolpidem Tartrate [Ambien] 10 mg PO DAILY 12/15/19 morphine solution (IR) [Roxanol 5 mg PO Q1H PRN PRN 12/15/19 (IR oral solution)] Surgical History: total knee arthroplasty, - - Coronary stent placement Psychiatric History: No pertinent psych hx Smoking Status: Former smoker - *Family History Maternal History Items: No pertinent history Paternal History Items: Renal Disease Review of Systems Constitutional: Reports: Anorexia, Weakness, Fatigue. Denies: Chills, Fever, Weight Change HEENT: Reports: - - sores in mouth. Denies: Head Aches, Sinus Congestion, Sinus Drainage Cardiovascular: Denies: Chest Pain, Palpitations Respiratory: Reports: Shortness of breath at rest, Shortness of breath upon exertion. Denies: Cough, Sputum production Gastrointestinal: Denies: Abdominal Pain, Nausea, Vomiting Genitourinary: Denies: Dysuria Musculoskeletal: Denies: Joint Pain, Joint Tenderness Skin: Reports: Lesions. Denies: Rash, Wounds Neurological: Denies: Numbness, Tingling, Focal weakness Psychiatric: Denies: Anxiety, Depression, Homicidal Ideations, Suicidal Ideations Hematologic/ Lymphatic: Reports: Easy Bruising. Denies: Easy Bleeding VTE Information - Inpt Only VTE Present on Admission: No VTE Mechan Device Prophylaxis: SCD's VTE Pharm Prophylaxis ordered?: No Patient Problems: Active and Suspected Problems Generalized weakness (Acute) Hypoxia (Acute) - Physical Exam Vitals/I&O's: Vital Signs Temp Pulse Resp BP Pulse Ox 98.1 F 103 H 24 H 124/68 H 96 12/15/19 22:12 12/15/19 22:12 12/15/19 22:12 12/15/19 22:12 12/15/19 22:12 Oxygen Flow Rate (L/min) 4 Oxygen Delivery Method Nasal Cannula Weight: 192 lb 0.362 oz Body Mass Index (BMI) 30.0 Intake and Output for Last 24 Hours 12/13/19 12/14/19 12/15/19 23:59 23:59 23:59 Intake Total 500 / 500 Balance 500 / 500 General: Alert, Oriented x3, Cooperative HEENT: Atraumatic, Normocephalic Neck: Supple Lungs: No wheeze, Diminished, Tachypneic Cardiovascular: Regular rate, Normal S1, Normal S2, No murmurs Abdomen: Bowel Sounds Present, Soft, Non Tender Extremities: No edema, Capillary Refill Less than 3 Seconds Skin: Ulcer/ Wound - oral skin lesions around the mouth Musculoskeletal: No Tenderness to Palpation of Joints or Extremities Neurological: Neuro grossly intact Psych/Mental Status: Normal Affect, Appropriate Laboratory Results 12/15/19 18:10: WBC 8.4, RBC 4.02 L, Hgb 13.6, Hct 42.6, MCV 106.0 H, MCH 33.8 H , MCHC 31.9 L, RDW Std Deviation 49.7 H, RDW Coeff of Elizabeth 12.7, Plt Count 134 L, MPV 9.3, Immature Gran % (Auto) 2.500 H, Neut % (Auto) 65.6, Lymph % (Auto) 19.2, [place] % (Auto) 9.8, Eos % (Auto) 2.4, Baso % (Auto) 0.5, Absolute Neuts (auto) 5.5, Absolute Lymphs (auto) 1.62, Nucleated RBC % 0 12/15/19 18:10: PT 16.3 H, INR 1.4, APTT 34.8 12/15/19 18:10: Sodium 140, Potassium 4.4, Chloride 97 L, Carbon Dioxide 39.0 H, Anion Gap 4 L, BUN 23 H, Creatinine 1.12, Estim Creat Clear Calc 47.54, Est GFR (MDRD) Af Amer 81, Est GFR (MDRD) Non-Af 67, BUN/Creatinine Ratio 20.5 H, Glucose 80, Calcium 9.7, Total Bilirubin 0.70, AST 17, ALT 19, Alkaline Phosphatase 94, Troponin I < 0.015, Total Protein 6.2 L, Albumin 2.9 L, Globulin 3.3, Albumin/Globulin Ratio 0.9 12/15/19 19:18: Lactic Acid 1.1 12/15/19 19:30: Urine Color Yellow, Urine Clarity Clear, Urine pH 5.0, Ur Specific [place] 1.015, Urine Protein Negative, Urine Glucose (UA) Normal, Urine Ketones Negative, Urine Occult Blood Negative, Urine Nitrite Negative, Urine Bilirubin Negative, Urine Urobilinogen Normal, Ur Leukocyte Esterase Negative, Urine RBC 0 SEEN, Urine WBC 0 SEEN, Ur Squamous Epith Cells 0 SEEN, Urine Bacteria 0 SEEN, Hyaline Casts 0-5 SEEN, Urine Mucus 0 SEEN 12/15/19 22:28: COVID-19 (SHASHA) Pending Assessment/Plan All Active Problems Acute kidney injury (Acute) Generalized weakness (Acute) Near syncope (Acute) COPD (Acute) Hypoxia (Acute) Chronic Problems Pityriasis rubra pilaris (Chronic) Chronic a-fib (Chronic) Follicular lymphoma (Chronic) NHL (non-Hodgkin's lymphoma) (Chronic) Chronic diastolic heart failure (Chronic) Restless leg disorder (Chronic) Chronic normocytic normochromic anemia (Chronic) Plan 1. Dyspnea/hypoxia?patient will be held in the emergency room until COVID test is negative and then be placed for appropriate location on the floor, admit for observation to medical surgical floor, supportive oxygen care 2. Oral lesions poor oral intake?IV normal saline at 125 cc/h 3. Non-Hodgkin's lymphoma?[facility]ult [facility] in the morning 4. DVT prophylaxis?SCDs OBSV E&M: [id number] Initial observation care L2
[2019-12-16] VITALS (13 sets, daily range): BP systolic 119–144; BP diastolic 43–109; PULSE 82–101; RESP 16–24; TEMP 36.7–37.1; O2SAT 92–98; BMI 29.4
[2019-12-16] MEDS: 0.9% Saline Lock 10 ML Syringe IV (03:28)
[2019-12-16] MEDS: 0.9% Normal Saline 1,000 ML 125 ML IV ×3 (03:28→19:49)
[2019-12-16] MEDS: Ipratropium/Albuterol Sulfate 3 ML AMPUL.NEB INHALATION ×5 (06:58→23:15)
[2019-12-16] MEDS: Polyethylene Glycol 3350 17 GM PACKET PO (09:10)
[2019-12-16] MEDS: APIXABAN 5 MG TABLET PO ×2 (09:10→22:21)
[2019-12-16] MEDS: predniSONE 10 MG Tablet PO (09:10)
[2019-12-16] MEDS: Furosemide 20 MG Tablet PO (09:10)
[2019-12-16] MEDS: guaiFENesin 600 MG Tablet PO ×2 (09:10→22:22)
[2019-12-16] MEDS: Fluticasone 0.05% 1 SPRAY NASAL.SRY NASAL (09:11)
[2019-12-16] MEDS: Sotalol Hydrochloride 80 MG Tablet 40 MG PO ×2 (09:11→22:20)
--- NOTE | 2019-12-16 10:02 | CASEMGMT ---
Addendum entered by Cierra Kidd 12/16/19 11:04: SW received call from Rachael at [facility] stating pt wishes to discharge home with Hospice services. Rachael states that pt revoked [facility] services this morning and due to Medicare rules and guidelines, [facility] is not able to see pt until tomorrow. Rachael asked if pt could stay at [facility] tonight and then return home with [facility] tomorrow. QUYNH spoke with PA, and updated on Hospice. CLOTILDE states pt is able to stay tonight, discharge tomorrow. QUYNH placed a call to Rachael at [facility] and updated her that pt will stay today and discharge home with Hospice tomorrow. Plan: Home with Hospice tomorrow Original Note: Social Work Note QUYNH updated that a consult has been placed to [facility] for pt. QUYNH received message from Fredy at [facility] requesting call back. SW in to speak with pt. QUYNH introduced self and role at [facility]. Pt is alert and orientated x3. Pt confirms that he is agreeable to [facility] consult. QUYNH asked pt if [facility] is able to call pt's cell phone to discuss services or if he prefers for Hospice to call his daughter Lyudmila. Pt placed a call to Lyudmila. Per conversation with Lyudmila, [facility] has already been in contact with her and they are arranging a time to have a conference call between pt, Lyudmila and Hospice. QUYNH placed a call to [facility] and spoke with YENI Xavier. Morenita states they are checking to determine when pt revoked his Hospice Services with [facility] because if pt revoked Hospice services after midnight, [facility] will not be able to do anything with pt today. Morenita confirms they are arranging a conference call with pt and his daughter. Cierra Kidd ENOLOGIST, HYDROELECTRIC MECHANIC
--- NOTE | 2019-12-16 12:51 | PN_ITS ---
Patient Problems: Active and Suspected Problems Generalized weakness (Acute) Hypoxia (Acute) Reason for Visit: Inability to eat and swallow secondary to diffuse mild sore and ulcer. Non- Hodgkin's lymphoma on DNR CC Objective: Patient revoked hospice care as he was more short of breath. Shortness of br eath started 3 weeks ago. Patient is on home oxygen for long time but desaturates to 84% on 4 L of oxygen in ER on walking to bathroom. Patient has not been eating or drinking for last 3 weeks due to mild sore. No fever or chills. Vitals/I&O's: Vital Signs Temp Pulse Resp BP Pulse Ox 98.3 F 89 24 H 126/56 H 94 12/16/19 08:54 12/16/19 08:54 12/16/19 08:54 12/16/19 08:54 12/16/19 08:54 Oxygen Flow Rate (L/min) 4 Oxygen Delivery Method Nasal Cannula Weight: 187 lb 13.341 oz Body Mass Index (BMI) 29.4 Intake and Output for Last 24 Hours 12/14/19 12/15/19 12/16/19 23:59 23:59 23:59 Intake Total 500 / 500 1180 / 1180 Balance 500 / 500 1180 / 1180 General: Alert, Oriented x3, Cooperative HEENT: Atraumatic, PERRLA, EOMI, Normocephalic Oral: Dry Mucosa, Ulcerations Present - Diffuse oral, labial thin-walled aphthous ulcer present. There is also present on the lateral edge of tongue and buccal mucosa. Neck: Supple, No JVD, Negative Carotid Bruits, No Nuchal Rigidity, - - No palpable lymph nodes over cervical region or supraclavicular region Lungs: Clear to auscultation, No rhonchi, No wheeze, No rales, Diminished Cardiovascular: Regular rate, Regular Rhythm, Normal S1, Normal S2, No murmurs Abdomen: Bowel Sounds Present, Soft, Non Tender, Non-Distended Extremities: Capillary Refill Less than 3 Seconds, Edema Skin: Rash Present - Widespread ecchymosis and bruise present in both upper extremity and lower extremity. Patient is on chronic steroid cream for pityriasis alba Musculoskeletal: No Tenderness to Palpation of Joints or Extremities, Tenderness - Skin tenderness/hyperalgesia present on both upper extremities and lower extremities Neurological: Cranial nerves II-XII grossly intact, Neuro grossly intact, - - Muscle weakness of lower extremities Psych/Mental Status: Normal Affect, Appropriate Laboratory Results 12/15/19 18:10: WBC 8.4, RBC 4.02 L, Hgb 13.6, Hct 42.6, MCV 106.0 H, MCH 33.8 H , MCHC 31.9 L, RDW Std Deviation 49.7 H, RDW Coeff of [place] 12.7, Plt Count 134 L, MPV 9.3, Immature Gran % (Auto) 2.500 H, Neut % (Auto) 65.6, Lymph % (Auto) 19.2, [place] % (Auto) 9.8, Eos % (Auto) 2.4, Baso % (Auto) 0.5, Absolute Neuts (auto) 5.5, Absolute Lymphs (auto) 1.62, Nucleated RBC % 0 12/15/19 18:10: PT 16.3 H, INR 1.4, APTT 34.8 12/15/19 18:10: Sodium 140, Potassium 4.4, Chloride 97 L, Carbon Dioxide 39.0 H, Anion Gap 4 L, BUN 23 H, Creatinine 1.12, Estim Creat Clear Calc 47.54, Est GFR (MDRD) Af Amer 81, Est GFR (MDRD) Non-Af 67, BUN/Creatinine Ratio 20.5 H, Glucose 80, Calcium 9.7, Total Bilirubin 0.70, AST 17, ALT 19, Alkaline Phosphatase 94, Troponin I < 0.015, Total Protein 6.2 L, Albumin 2.9 L, Globulin 3.3, Albumin/Globulin Ratio 0.9 12/15/19 19:18: Lactic Acid 1.1 12/15/19 19:30: Urine Color Yellow, Urine Clarity Clear, Urine pH 5.0, Ur Specific [place] 1.015, Urine Protein Negative, Urine Glucose (UA) Normal, Urine Ketones Negative, Urine Occult Blood Negative, Urine Nitrite Negative, Urine Bilirubin Negative, Urine Urobilinogen Normal, Ur Leukocyte Esterase Negative, Urine RBC 0 SEEN, Urine WBC 0 SEEN, Ur Squamous Epith Cells 0 SEEN, Urine Bacteria 0 SEEN, Hyaline Casts 0-5 SEEN, Urine Mucus 0 SEEN 12/15/19 22:28: COVID-19 (SHASHA) Not Detected Current Medications Albuterol Sulfate (Ventolin Aerosols) 2.5 mg INHALATION Q4H PRN PRN PRN Reason: SOB &/OR WHEEZING Albuterol/Ipratropium (Duoneb) 3 ml INHALATION Q4H.RT [facility] Last Admin: 12/16/19 11:16 Dose: 3 ml Documented by: Apixaban (Eliquis) 5 mg PO BID [facility] Last Admin: 12/16/19 09:10 Dose: 5 mg Documented by: Atorvastatin Calcium (Lipitor) 20 mg PO QHS [facility] Doxazosin Mesylate (Cardura) 2 mg PO DAILY@2200 [facility] Fluticasone Propionate (Flonase Nasal [place]) 1 spray NASAL DAILY [facility] Last Admin: 12/16/19 09:11 Dose: 1 spray Documented by: Furosemide (Lasix) 20 mg PO DAILY [facility] Last Admin: 12/16/19 09:10 Dose: 20 mg Documented by: Guaifenesin (Mucinex) 600 mg PO Q12 [facility] Last Admin: 12/16/19 09:10 Dose: 600 mg Documented by: Hydrocortisone (Hytone) 1 applic TOPICAL BID PRN PRN PRN Reason: ITCHING SCALP Sodium Chloride () 1,000 mls @ 125 mls/hr IV .Q8H [facility] Last Admin: 12/16/19 11:39 Dose: 125 mls/hr Documented by: Lidocaine/Diphenhydr/Alum/Mg/Simeth () 15 ml PO Q4H PRN PRN PRN Reason: SORE MOUTH Lorazepam (Ativan) 0.5 - 1 mg PO Q4H PRN PRN PRN Reason: ANXIETY Morphine Sulfate (Roxanol (Ir Oral Solution)) 5 - 10 mg PO Q1H PRN PRN PRN Reason: SHORTNESS OF BREATH Nutritional Formula (Lactose Free) (Ensure Enlive) 120 ml PO 4X/DAY [facility] Ondansetron HCl (Zofran) 8 mg PO Q8H PRN PRN PRN Reason: NAUSEA Polyethylene Glycol (Miralax) 17 gm PO DAILY [facility] Last Admin: 12/16/19 09:10 Dose: 17 gm Documented by: [facility] () [facility] Admin: 12/16/19 09:10 Dose: 10 mg Documented by: Sodium Chloride () 10 - 40 ml IV UD PRN PRN Reason: SALINE FLUSH Last Admin: 12/16/19 03:28 Dose: 10 ml Documented by: Sodium Chloride ([place] Nasal [place]) 2 spray NASAL BID [facility] Sotalol HCl (Betapace (G)) 40 mg PO BID [facility] Last Admin: 12/16/19 09:11 Dose: 40 mg Documented by: Zolpidem Tartrate (Ambien (Generic)) 5 mg PO QHS [facility] Vital Signs/Narrative: Vital Signs Temp Pulse Resp BP Pulse Ox 12/16/19 08:54 98.3 F 89 24 H 126/56 H 94 Medical Necessity - Tobacco Use Smoking Status: Former smoker Tobacco Use: Cigarettes Assessment/Plan All Active Problems Acute kidney injury (Acute) Generalized weakness (Acute) Near syncope (Acute) COPD (Acute) Hypoxia (Acute) This 84-year-old gentleman with history of non-Hodgkin's lymphoma on home hospice care was admitted for shortness of breath for 3 weeks, hypoxia on exertion and poor oral intake and failure to thrive. 1. Acute respiratory insufficiency on chronic hypoxic respiratory failure: Patient desaturates on exertion. Currently patient on 4 L of oxygen. Wean off to baseline oxygen as per tolerated 2. Poor oral intake secondary to diffuse oropharyngeal aphthous ulcer, moderate protein calorie nutrition and generalized weakness: Inside Polisher and lead case manager consult. Patient is on BMX liquid. Nystatin p.o. swish and swallow added. 3. Non-Hodgkin's lymphoma, advanced stage, DNR CC, not a candidate for chemotherapy as per Dr Altamirano: Patient is on chronic prednisone 10 mg daily. Patient has bilateral lower extremity weakness. Prednisone was decreased to 5 mg daily and then taper to 2.5 mg. Patient also uses hydrocortisone topical cream for pertussis elbow and any skin atrophy and possible cause for mouth ulcer. Hospice/palliative care consult. 4. Pityriasis alba: 5. Other chronic comorbidities include COPD, chronic hypoxic respiratory failure, chronic normocytic normochromic anemia, chronic diastolic heart failure, chronic A. fib and restless leg syndrome: Multiple comorbidities complicates the present care and portends poor prognosis Living will/advanced directive/end of life care: Patient does have living will or advanced directive. After discussion of procedures involved with full code, DNR CC arrest and DNR CC, the patient opted for DNR-CC Patient does not want artificial life support including intubation, tube feed, ventilator and/chest compression, central venous catheter, vasopressor and DC shock if needed. DNR CC. Total time spent in [id number] encounter in discussion of advanced directive 16 minutes. Inpatient E&M: [id number] Subs Hosp L2
--- NOTE | 2019-12-16 16:33 | NURSING ---
Called Daughter Lyudmila and given update on pt. Lyudmila informed me that pt did not bring his own portable oxygen tank so will need one at d/c. Also no family member is able to come get him to take pt home.
[2019-12-16] MEDS: NYSTATIN 500,000 UNIT/5 ML UDC 500000 UNIT PO ×2 (16:52→22:22)
[2019-12-16] MEDS: Zolpidem Tartrate 5 MG Tablet PO (22:20)
[2019-12-16] MEDS: Doxazosin 1 MG Tablet 2 MG PO (22:21)
[2019-12-16] MEDS: Atorvastatin Calcium 20 MG Tablet PO (22:22)
[2019-12-17] VITALS (9 sets, daily range): BP systolic 118–160; BP diastolic 66–84; PULSE 82–96; RESP 16–28; TEMP 36.4–36.9; O2SAT 92–96
--- NOTE | 2019-12-17 03:26 | NURSING ---
Pt took 10 ml BMX from home. Told him from now on we need to use the pharmacy mixture.
[2019-12-17] MEDS: Ipratropium/Albuterol Sulfate 3 ML AMPUL.NEB INHALATION ×4 (03:36→14:50)
[2019-12-17] MEDS: 0.9% Normal Saline 1,000 ML 75 ML IV (04:08)
[2019-12-17] MEDS: BMX LIQUID 180 ML 15 ML PO (07:22)
[2019-12-17] MEDS: Sotalol Hydrochloride 80 MG Tablet 40 MG PO (09:31)
[2019-12-17] MEDS: APIXABAN 5 MG TABLET PO (09:31)
[2019-12-17] MEDS: guaiFENesin 600 MG Tablet PO (09:32)
[2019-12-17] MEDS: Fluticasone 0.05% 1 SPRAY NASAL.SRY NASAL (09:32)
[2019-12-17] MEDS: Furosemide 20 MG Tablet PO (09:32)
[2019-12-17] MEDS: NYSTATIN 500,000 UNIT/5 ML UDC 500000 UNIT PO ×2 (09:33→15:15)
[2019-12-17] MEDS: predniSONE 5 MG Tablet PO (09:36)
[2019-12-17] MEDS: Vitamin B Comp W-C Capsule 1 CAP PO (09:36)
--- NOTE | 2019-12-17 11:16 | PCM.DC ---
- Discharge Diagnoses Current Active Problems: Current Active and Chronic Problems Generalized weakness (Acute) NHL (non-Hodgkin's lymphoma) (Chronic) Hypoxia (Acute) You will use the following diet at home:: Regular Your food should be the consistency of: Regular Discharge Activity: May Not Drive Weight Bearing Status: Weight bearing as tolerated Call your doctor if you observe: Fever of 101 or Higher, Coldness, Increased Pain, Numbness or Tingling, Change in Color, Inability to urinate, Inability to have a bowel movement, Shortness of breath, Dizziness, Fainting spells, Chest pain, Prolonged hiccoughing, Increased palpitations (irregular heartbeat), Uncontrolled pain Additional Instructions: F/U Home hospice care Allergies/Adverse Reactions: Allergies Iodinated Contrast Media [Iodinated Contrast Media - Oral and] Allergy (Verified 12/15/19 17:49) Hives Medications to take at Discharge Apixaban [Eliquis] 5 mg PO BID 06/23/16 Atorvastatin Calcium [Lipitor] 20 mg PO QHS 06/23/16 Budesonide/Formoterol 160/4.5 [Symbicort 160/4.5 Mcg Inhaler (SP)] 1 puff INHALATION BID 06/23/16 Sotalol HCl [Betapace AF (Beta [place])] 40 mg PO BID 06/23/16 Albuterol Sulfate [Proventil Hfa] 6.7 gm IH Q4H PRN PRN 09/27/18 Ondansetron [Zofran] 8 mg PO Q8H PRN PRN 09/27/18 Bxm Liquid [BMX LIQUID] 10 ml PO QHS 12/15/19 Doxazosin Mesylate [Cardura] 2 mg PO DAILY 12/15/19 Fluticasone 0.05% [Flonase Nasal [place]] 1 spray NASAL DAILY 12/15/19 Ipratropium/Albuterol Sulfate [Duoneb] 3 ml INHALATION Q4H.RT 12/15/19 Polyethylene Glycol 3350 [Miralax] 17 gm PO DAILY 12/15/19 Zolpidem Tartrate [Ambien] 10 mg PO QHS 12/15/19 Hydrocortisone Valerate 60 gm TOPICAL Q4H PRN PRN 12/16/19 Furosemide [Lasix] 20 mg PO DAILY PRN PRN #30 tablet 12/17/19 Guaifenesin [Mucinex] 600 mg PO Q12 #14 tab 12/17/19 Nystatin 500,000 unit PO 4X/DAY 7 Days #1 bottle 12/17/19 Saliva Substitute [Biotene] 15 ml MM 5X/DAY PRN 10 Days #1 bottle 12/17/19 The following prescriptions were given: Saliva Substitute [Biotene] 15 ml MM 5X/DAY PRN 10 Days #1 bottle PRN Reason: Dry Mouth Transmission Status: Pending to [facility] Guaifenesin [Mucinex] 600 mg PO Q12 #14 tab Transmission Status: Pending to [facility] Nystatin 500,000 unit PO 4X/DAY 7 Days #1 bottle Transmission [facility]: [facility] Primary Care Physician: Jethro Dennis DO [Primary Care Provider] - Please follow up with your Primary Care Physician in: IN 2 WEEKS Test Results: Test results from this visit will be discussed in further detail at your follow-up appointment, if applicable.
--- NOTE | 2019-12-17 13:54 | CASEMGMT ---
Addendum entered by Cierra Kidd 12/17/19 14:52: QUYNH faxed discharge paperwork to [facility]. Original Note: Social Work Note Pt is discharging home today with Hospice service. QUYNH in to speak with pt. Pt states that he has two steps on his porch and one step to enter his home. Pt states his daughter left [place] at 1:00pm and will be at [facility] around 4:00pm to meet pt at his home. QUYNH asked pt about oxygen for transport home as pt required 4 liters continuously. Pt confirms that he doesn't have his portable oxygen tank and will need oxygen to return home. QUYNH asked pt if his daughter would be able to stop at his home to get portable tank and then come to [facility] to transport pt home pt is not sure, asked this worker to call his daughter. QUYNH placed a call to pt's daughter Lyudmila. Lyudmila states she is able to go to pt's home to get portable oxygen tank and then transport pt home but it wouldn't be until 4:30pm. QUYNH informed Lyudmila that there is no check out time as long as pt discharges home today it doesn't matter the time. QUYNH explained the other two options of transporting via wheelchair van or via cot. QUYNH explained that the wheelchair van is all private pay and they won't help pt in and out of the chair or into pt's home. Lyudmila states that won't work, pt will need assistance with his steps. QUYNH explained the other option of cot transport but this worker can't guarantee cot will be covered by insurance and pt may get a bill which could be anywhere from $240 and up. Lyudmila asked this worker to speak with pt regarding different transport options and let pt decide. QUYNH placed a call to [facility] and updated Morenita that this worker still doesn't have a time yet as this worker is trying to figure out transporting for pt. Morenita states she was under the impression that pt's daughter Lyudmila wanted transportation arranged. QUYNH explained that this worker is trying to confirm with pt and Lyudmila the transportation for pt and then this worker will call them back. QUYNH in to speak with pt. QUYNH updated pt that Lyudmila is willing to cloth picker pt's portable oxygen tank from home and then come to [facility] to transport pt home but Lyudmila wouldn't be at [facility] until about 4:30pm. QUYNH explained to pt that this worker could call for cot transport to see if they could transport sooner but again reiterated that this worker cannot guarantee pt's insurance would cover cot transport and pt may get a bill. Pt states he is agreeable to Lyudmila transporting pt home. Pt states he will need to speak to Lyudmila when she is in pt's home to let her know which oxygen tank to bring. QUYNH informed pt that this worker can updated Lyudmila to call pt once she is at pt's home and he can speak to her. Pt agreeable to this. QUYNH placed a call to Lyudmila. QUYNH updated Lyudmila that pt is requesting for her to transport pt home and to have Lyudmila call pt once she is at pt's home so pt can tell her which oxygen tank to bring. Lyudmila agreeable to transporting pt home and will be calling pt to figure out oxygen. Lyudmila state she will be at [facility] around 4:30pm. QUYNH placed a call to [facility] and spoke with Morenita and updated her on transportation time. QUYNH updated Morenita that discharge paperwork is still in draft, but will fax over paperwork once completed. QUYNH updated RN on transportation time. Plan: Home with [facility] with pt's daughter transporting at 4:30pm. Pt's daughter will be going to pt's home to get portable oxygen tanks. Cierra Kidd PHONE COUNSELOR, INSPECTION AND TESTING SUPERVISOR
--- NOTE | 2019-12-17 14:17 | PCM.DC.SUM ---
Discharge Date and Diagnosis - Problem List Patient Problems: Active and Suspected Problems Generalized weakness (Acute) Hypoxia (Acute) Date of Admission: 12/15/19 Date of Discharge: 12/17/19 - Primary Discharge Diagnosis Acute Problems: Active Problems Generalized weakness (Acute) Hypoxia (Acute) - Secondary Discharge Diagnosis Chronic Problems: Chronic Problems Pityriasis rubra pilaris (Chronic) Chronic a-fib (Chronic) Follicular lymphoma (Chronic) NHL (non-Hodgkin's lymphoma) (Chronic) Chronic diastolic heart failure (Chronic) Restless leg disorder (Chronic) Chronic normocytic normochromic anemia (Chronic) Hospital Course and Treatment Operations: None Summary of Care Provided: [] This 84-year-old gentleman with history of non-Hodgkin's lymphoma on home hospice care was admitted for shortness of breath for 3 weeks, hypoxia on exertion and poor oral intake and failure to thrive. 1. Acute respiratory insufficiency on chronic hypoxic respiratory failure: Patient desaturates on exertion. Currently patient on 4 L of oxygen. Patient is being discharged to home hospice care. 2. Poor oral intake secondary to diffuse oropharyngeal aphthous ulcer, moderate protein calorie nutrition and generalized weakness: Fuel Agent and watch case polisher consultations were done. Patient is on BMX liquid, nystatin p.o. swish and swallow and Biotene mouth spray. Prednisone discontinued. 3. Non-Hodgkin's lymphoma, advanced stage, DNR CC, not a candidate for chemotherapy as per Dr Altamirano: Prednisone dose confirmed with the pharmacist. Actually patient was on 20 mg daily before admission which was decreased from 40 mg daily in October. Tapering dose of prednisone sent to patient's pharmacy. Patient on hydrocortisone topical cream for pertussis elbow and it seems prednisone adverse effect causing skin atrophy and responsible for mouth ulcer. Hospice/palliative care consult. 4. Pityriasis alba: As mentioned above 5. Other chronic comorbidities include COPD, chronic hypoxic respiratory failure, chronic normocytic normochromic anemia, chronic diastolic heart failure, chronic A. fib and restless leg syndrome: Multiple comorbidities complicates the present care and portends poor prognosis Living will/advanced directive/end of life care: Patient does have living will or advanced directive. After discussion of procedures involved with full code, DNR CC arrest and DNR CC, the patient opted for DNR-CC Patient does not want artificial life support including intubation, tube feed, ventilator and/chest compression, central venous catheter, vasopressor and DC shock if needed. DNR CC. Total time spent in [id number] encounter in discussion of advanced directive 16 minutes. Home hospice set up. Patient Problems: Active and Suspected Problems Generalized weakness (Acute) Hypoxia (Acute) Objective: Seen and examined. Patient does not feel much improvement on mild sore/pain and ulcer but superficial aphthous ulcers looks better. They are dry. Tenderness improved. General: Alert, Oriented x3, Cooperative HEENT: Atraumatic, PERRLA, EOMI, Normocephalic Oral: Dry Mucosa, Diffuse oral, labial thin-walled aphthous ulcer present. There is superficial ulcer on the lateral edge of tongue and buccal mucosa. Neck: Supple, No JVD, Negative Carotid Bruits, No Nuchal Rigidity, - - No palpable lymph nodes over cervical region or supraclavicular region Lungs: Clear to auscultation, No rhonchi, No wheeze, No rales, Diminished Cardiovascular: Regular rate, Regular Rhythm, Normal S1, Normal S2, No murmurs Abdomen: Bowel Sounds Present, Soft, Non Tender, Non-Distended Extremities: Capillary Refill Less than 3 Seconds, Edema Skin: Rash Present - Widespread ecchymosis and bruise present in both upper extremity and lower extremity. Patient is on chronic steroid cream for pityriasis alba Musculoskeletal: No Tenderness to Palpation of Joints or Extremities, Tenderness - Skin tenderness/hyperalgesia present on both upper extremities and lower extremities Neurological: Cranial nerves II-XII grossly intact, Neuro grossly intact, - - Muscle weakness of lower extremities Psych/Mental Status: Normal Affect, Appropriate - Physical Exam Vitals/I&O's: Vital Signs Temp Pulse Resp BP Pulse Ox 97.6 F L 88 20 H 160/84 H 95 12/17/19 09:30 12/17/19 10:54 12/17/19 10:54 12/17/19 09:30 12/17/19 09:30 Oxygen Flow Rate (L/min) 4 Oxygen Delivery Method Nasal Cannula Weight: 187 lb 13.341 oz Body Mass Index (BMI) 29.4 Intake and Output for Last 24 Hours 12/15/19 12/16/19 12/17/19 23:59 23:59 23:59 Intake Total 500 / 500 2930 / 2930 1450 / 1450 Balance 500 / 500 2930 / 2930 1450 / 1450 Current Medications Albuterol Sulfate (Ventolin Aerosols) 2.5 mg INHALATION Q4H PRN PRN PRN Reason: SOB &/OR WHEEZING Albuterol/Ipratropium (Duoneb) 3 ml INHALATION Q4H.RT [facility] Last Admin: 12/17/19 10:54 Dose: 3 ml Documented by: Apixaban (Eliquis) 5 mg PO BID [facility] Last Admin: 12/17/19 09:31 Dose: 5 mg Documented by: Atorvastatin Calcium (Lipitor) 20 mg PO QHS [facility] Last Admin: 12/16/19 22:22 Dose: 20 mg Documented by: Doxazosin Mesylate (Cardura) 2 mg PO DAILY@2200 [facility] Last Admin: 12/16/19 22:21 Dose: 2 mg Documented by: Fluticasone Propionate (Flonase Nasal Blanchard) 1 spray NASAL DAILY [facility] Last Admin: 12/17/19 09:32 Dose: 1 spray Documented by: Furosemide (Lasix) 20 mg PO DAILY [facility] Last Admin: 12/17/19 09:32 Dose: 20 mg Documented by: Guaifenesin (Mucinex) 600 mg PO Q12 [facility] Last Admin: 12/17/19 09:32 Dose: 600 mg Documented by: Hydrocortisone (Hytone) 1 applic TOPICAL BID PRN PRN PRN Reason: ITCHING SCALP Sodium Chloride () 1,000 mls @ 75 mls/hr IV .[id number] [facility] Last Admin: 12/17/19 04:08 Dose: 75 mls/hr Documented by: Lidocaine/Diphenhydr/Alum/Mg/Simeth () 15 ml PO Q4H PRN PRN PRN Reason: SORE MOUTH Last Admin: 12/17/19 07:22 Dose: 15 ml Documented by: Lorazepam (Ativan) 0.5 - 1 mg PO Q4H PRN PRN PRN Reason: ANXIETY Morphine Sulfate (Roxanol (Ir Oral Solution)) 5 - 10 mg PO Q1H PRN PRN PRN Reason: SHORTNESS OF BREATH Nutritional Formula (Lactose Free) (Ensure Enlive) 120 ml PO 4X/DAY [facility] Last Admin: 12/17/19 09:34 Dose: Not Given Documented by: Nystatin (Nystatin) 500,000 unit PO 4X/DAY [facility] Last Admin: 12/17/19 09:33 Dose: 500,000 unit Documented by: Ondansetron HCl (Zofran) 8 mg PO Q8H PRN PRN PRN Reason: NAUSEA Polyethylene Glycol (Miralax) 17 gm PO DAILY [facility] Last Admin: 12/17/19 09:33 Dose: Not Given Documented by: Prednisone () 5 mg PO DAILYCM [facility] Stop: 12/21/19 08:01 Last Admin: 12/17/19 09:36 Dose: 5 mg Documented by: Pred[facility] () [facility] Saliva Substitute (Biotene) 15 ml MM 5X/DAY PRN PRN Reason: DRY MOUTH Sodium Chloride () 10 - 40 ml IV UD PRN PRN Reason: SALINE FLUSH Last Admin: 12/16/19 03:28 Dose: 10 ml Documented by: Sodium Chloride (Custar Nasal Blanchard) 2 spray NASAL BID [facility] Last Admin: 12/17/19 09:37 Dose: Not Given Documented by: Sotalol HCl (Betapace (G)) 40 mg PO BID [facility] Last Admin: 12/17/19 09:31 Dose: 40 mg Documented by: Zolpidem Tartrate (Ambien (Generic)) 5 mg PO QHS [facility] Last Admin: 12/16/19 22:20 Dose: 5 mg Documented by: Discharge Activity: May Not Drive Weight Bearing Status: Weight bearing as tolerated Call your doctor if you observe: Fever of 101 or Higher, Coldness, Increased Pain, Numbness or Tingling, Change in Color, Inability to urinate, Inability to have a bowel movement, Shortness of breath, Dizziness, Fainting spells, Chest pain, Prolonged hiccoughing, Increased palpitations (irregular heartbeat), Uncontrolled pain Home Medications: Medications to take at Discharge Apixaban [Eliquis] 5 mg PO BID 06/23/16 Atorvastatin Calcium [Lipitor] 20 mg PO QHS 06/23/16 Budesonide/Formoterol 160/4.5 [Symbicort 160/4.5 Mcg Inhaler (SP)] 1 puff INHALATION BID 06/23/16 Sotalol HCl [Betapace AF (Beta [place])] 40 mg PO BID 06/23/16 Albuterol Sulfate [Proventil Hfa] 6.7 gm IH Q4H PRN PRN 09/27/18 Ondansetron [Zofran] 8 mg PO Q8H PRN PRN 09/27/18 Bxm Liquid [BMX LIQUID] 10 ml PO QHS 12/15/19 Doxazosin Mesylate [Cardura] 2 mg PO DAILY 12/15/19 Fluticasone 0.05% [Flonase Nasal [place]anchard] 1 spray NASAL DAILY 12/15/19 Ipratropium/Albuterol Sulfate [Duoneb] 3 ml INHALATION Q4H.RT 12/15/19 Polyethylene Glycol 3350 [Miralax] 17 gm PO DAILY 12/15/19 Zolpidem Tartrate [Ambien] 10 mg PO QHS 12/15/19 Hydrocortisone Valerate 60 gm TOPICAL Q4H PRN PRN 12/16/19 Furosemide [Lasix] 20 mg PO DAILY PRN PRN #30 tab 12/17/19 Guaifenesin [Mucinex] 600 mg PO Q12 #14 tab 12/17/19 Nystatin 500,000 unit PO 4X/DAY 7 Days #1 bottle 12/17/19 Prednisone 10 mg PO DAILY #30 tab 12/17/19 Saliva Substitute [Biotene] 15 ml MM 5X/DAY PRN 10 Days #1 bottle 12/17/19 Following Prescrptions Were Given to Patient: Saliva Substitute [Biotene] 15 ml MM 5X/DAY PRN 10 Days #1 bottle PRN Reason: Dry Mouth Transmission Status: Received by [address] Guaifenesin [Mucinex] 600 mg PO Q12 #14 tab Transmission Status: Received by [address] Nystatin 500,000 unit PO 4X/DAY 7 Days #1 bottle Transmission Status: Received by [address] Primary Care Physician: Jethro Dennis DO [Primary Care Provider] - Please follow up with your Primary Care Physician in: IN 2 WEEKS Medical Necessity - Tobacco Use Smoking Status: Former smoker Tobacco Use: Cigarettes Meaningful Use Info Meaningful Use Diagnoses (Choose all that apply): None applicable Inpatient E&M: 05143 [facility]
== END 2019-12-17 16:50 | disposition home or self-care (01) | DRG 191 ==
LOC: ED 22:16 → MS3 23:40
PROVIDERS: Admitting Provider Family Medicine; Emergency Provider Emergency Medicine; PCP Family Medicine; Visit Provider Internal Medicine
DX: J44.9 Chronic obstructive pulmonary disease, unspecified (principal); J96.11 Chronic respiratory failure with hypoxia; C82.90 Follicular lymphoma, unspecified, unspecified site; N17.9 Acute kidney failure, unspecified; I50.32 Chronic diastolic (congestive) heart failure; I48.20 Chronic atrial fibrillation, unspecified; E44.0 Moderate protein-calorie malnutrition; Z99.81 Dependence on supplemental oxygen; K12.0 Recurrent oral aphthae; L44.0 Pityriasis rubra pilaris; Z66 Do not resuscitate; G25.81 Restless legs syndrome; Z68.30 Body mass index [BMI] 30.0-30.9, adult; Z79.01 Long term (current) use of anticoagulants; Z79.51 Long term (current) use of inhaled steroids; Z95.5 Presence of coronary angioplasty implant and graft; Z96.659 Presence of unspecified artificial knee joint; Z79.899 Other long term (current) drug therapy; Z87.891 Personal history of nicotine dependence; D64.9 Anemia, unspecified; R62.7 Adult failure to thrive
CPT/HCPCS: 36415; 71045; 80053; 81001; 83605; 84484; 85025; 85610; 85730; 87040; 87635; 92610; 93005; 94640; 97802; 99285; G2023; J7030; J7040; A4216; U0003